=== PATIENT | male | born 1940 | race Caucasian/White ===

== ENCOUNTER 2023-03-02 17:49 | Outpatient (REF) | payer MEDICARE, OTHER, SELFPAY ==
[2023-03-03 00:09] LABS: Bilirubin Urine NEGATIVE (NEGATIVE); Blood Urine NEGATIVE (NEGATIVE); Clarity Urine CLEAR (CLEAR); Color Urine YELLOW (YELLOW); Glucose Urine UA NEGATIVE (NEGATIVE); Ketones Urine TRACE mg/dL (NEGATIVE); Leukocyte Esterase Urine NEGATIVE (NEGATIVE); Nitrite Urine NEGATIVE (NEGATIVE); Protein Urine NEGATIVE (NEG/TRACE); Specific Gravity Urine 1.025 (1.005-1.025); pH Urine 5.5 (5.0-9.0)
== END 2023-03-02 17:50 | disposition home or self-care (01) ==
LOC: LAB 17:49
PROVIDERS: Visit Provider Internal Medicine
DX: N39.0 Urinary tract infection, site not specified (principal)
CPT/HCPCS: 81003; 87086

== ENCOUNTER 2023-11-10 13:18 | Emergency (ER) | payer MEDICARE, OTHER, SELFPAY ==
[2023-11-10] VITALS (16 sets, daily range): BP systolic 133–151; BP diastolic 74–83; PULSE 65–89; TEMP 36.7; O2SAT 94–97; BMI 32.3
--- NOTE | 2023-11-10 13:28 | CT_ITS ---
[address] [address] Patient Name: GLENNA BHANDARI MRN: [id number] date: 1940 Sex: M Assigned Patient Location: ER Current Patient Location: Accession/Order Number: [id number] Exam Date: 11/10/2023 14:20 Report Date: 11/10/2023 15:06 At the request of: WALE WALDROP Procedure: CT abdomen pelvis w con EXAMINATION: CT abdomen pelvis w con HISTORY: pain ; upper abdominal pain when standing COMPARISON: No relevant comparison available. TECHNIQUE: Axial, Coronal, and Sagittal images were obtained without and/or with IV contrast as indicated by examination type. Dose reduction techniques were achieved by using automated exposure control and/or adjustment of mA and/or kV according to patient size and/or use of iterative reconstruction technique. FINDINGS: LUNG BASES: Calcified granulomas within left lung base. No acute infiltrates. LIVER: No enlargement, atrophy, suspicious density, or significant focal lesion. BILIARY: Numerous small stones partially filling the noninflamed gallbladder. PANCREAS: No lesion, fluid collection, or abnormal duct dilatation. SPLEEN: No enlargement or focal lesion. ADRENALS: No mass or enlargement. KIDNEYS: 6 cm benign-appearing right renal cyst. A few tiny hypodensities within left kidney, suspected represent cysts. Moderate cortical thinning bilaterally. No appreciable mass, stones, or obstruction. BOWEL/MESENTERY: No visible mass, obstruction, or bowel wall thickening. AORTA/VASCULAR: No aneurysm or dissection. RETROPERITONEUM: Moderate atherosclerotic disease. No mass or adenopathy. LYMPH NODES: No adenopathy. URINARY BLADDER: No visible focal wall thickening, lesion, or calculus. PELVIC ORGANS: No visible mass. Pelvic organs appropriate for patient age. ABDOMINAL WALL: Small fat filled umbilical hernia without strangulation. BONES: Multilevel moderate degenerative disc disease and facet arthropathy resulting in moderate central canal and areas of marked foramen narrowing. Old, healed lower right rib fractures. OTHER: Negative. CT/CT abdomen pelvis w con IMPRESSION: 1. Cholelithiasis. 2. Small fat filled umbilical hernia without strangulation. 3. Degenerative changes of lumbar spine resulting in moderate-marked foramen and moderate central canal narrowing. Electronically authenticated by: RG MCCULLOUGH Date: 11/10/2023 15:06
--- NOTE | 2023-11-10 13:28 | XR_ITS ---
The [address] [address] Patient Name: GLENNA BHANDARI MRN: [id number] date: 1940 Sex: M Assigned Patient Location: ED.MAIN Current Patient Location: ER Accession/Order Number: [id number] Exam Date: 11/10/2023 14:20 Report Date: 11/10/2023 14:40 At the request of: WALE WALDROP Procedure: XR chest 1V EXAMINATION: XR chest 1V HISTORY: upper abd pain COMPARISON: No relevant comparison available. FINDINGS: LUNGS: Underexpanded lungs with mild haziness and trace amount stranding within left lung base. Obscuration of left lateral costophrenic angle. VASCULATURE: No increased pulmonary vasculature. PLEURA: No pneumothorax, effusion, or pleural thickening. CARDIAC: No cardiomegaly or cardiac silhouette abnormality. MEDIASTINUM: No visible mass or adenopathy. BONES: No fracture or visible bone lesion. OTHER: Negative. XR/XR chest 1V IMPRESSION: 1. Mild lingular infiltrates versus atelectasis. A small left pleural effusion cannot be excluded. Electronically authenticated by: RG MCCULLOUGH Date: 11/10/2023 14:40
--- NOTE | 2023-11-10 13:28 | ECG_ITS ---
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
[2023-11-10] MEDS: 0.9 % SODIUM CHLORIDE 500 ML IV (13:37)
[2023-11-10 13:43] LABS: Basophils Percent Auto 0.4 % (0.2-2.0); Eosinophils Absolute Auto 0.2 10^3/uL (0.0-0.7); Eosinophils Percent Auto 3.2 % (0.9-7.0); Hematocrit 44.9 % (42.0-54.0); Hemoglobin 14.8 g/dL (14.0-18.0); Immature Granulocytes Abs Auto 0.03 10^3/uL (0.00-0.03); Immature Granulocytes Pct Auto 0.4 % (0.0-0.5); Lymphocytes Absolute Auto 1.7 10^3/uL (1.2-3.8); Lymphocytes Percent Auto 22.9 % (20.5-60.0); Mean Corpuscular Hemoglobin 32.5 pg (25.9-34.0); Mean Corpuscular Volume 98.7 fL (80.0-94.0); Mean Platelet Volume 10.5 fL (9.5-13.5); Monocytes Absolute Auto 0.8 10^3/uL (0.3-0.8); Monocytes Percent Auto 10.1 % (1.7-12.0); Neutrophils Absolute Auto 4.7 10^3/uL (1.4-6.5); Platelet Count 196 10^3/uL (150-450); Red Blood Count 4.55 10^6/uL (4.70-6.10); Red Cell Distribution Width 13.2 % (11.0-15.0); White Blood Count 7.4 10^3/uL (4.0-11.0)
[2023-11-10 14:03] LABS: Lactate/Lactic Acid 1.5 mmol/L (0.4-2.0)
[2023-11-10 14:04] LABS: Alanine Aminotransferase 33 U/L (16-63); Albumin Level 3.8 g/dL (3.4-5.0); Alkaline Phosphatase 91 U/L (46-116); Anion Gap 10.2; Aspartate Amino Transferase 16 U/L (15-37); BUN Creatinine Ratio 29.2; Bilirubin Total 0.4 mg/dL (0.2-1.0); Calcium 8.9 mg/dL (8.5-10.1); Chloride 107 mmol/L (98-107); Estimated GFR (African America >60 (>=60); Estimated GFR (Non-African Ame >60 (>=60); Globulin 3.9 g/dL; Glucose 74 mg/dL (74-106); Potassium 4.2 mmol/L (3.5-5.1); Sodium 143 mmol/L (136-145); Total Protein 7.7 g/dL (6.4-8.2); Troponin I High Sensitivity 7.2 pg/mL (4.0-76.1)
--- NOTE | 2023-11-10 14:32 | ED.ABDPAIN1 ---
HPI - Abdominal Pain General Chief Complaint: Abdominal Pain Stated Complaint: ABDOMINAL PAIN/ALTERED MENTAL STATUS Time Seen by Provider: 11/10/23 13:21 Source: patient and family Mode of arrival: ambulance Limitations: altered mental status History of Present Illness HPI narrative: Patient presents to ED complaining of abdominal pain. He is from a facility and he is in the memory care unit with a diagnosis of dementia. POTeri wanted him evaluated for abdominal pain. Apparently when somebody pressed on his abdomen he yelled out in pain. He said it is not hurting unless you push on it or if he is walking it was hurting. No nausea vomiting no fevers. He has chronic lower extremity edema. He denies any abdominal surgeries in the past. Vital signs stable resting comfortably in the bed Related Data Home Medications ?Medication ?Instructions ?Recorded ?Confirmed clopidogrel 75 mg tablet 75 mg PO DAILY 11/10/23 11/10/23 psyllium husk 0.52 gram capsule 0.52 g PO TID 11/10/23 11/10/23 (Fiber (psyllium husk)) rosuvastatin 5 mg tablet 5 mg PO BEDTIME 11/10/23 11/10/23 spironolactone 25 mg tablet 25 mg PO DAILY 11/10/23 11/10/23 terbinafine HCl 250 mg tablet 250 mg PO DAILY 11/10/23 11/10/23 valsartan 80 mg tablet 80 mg PO DAILY 11/10/23 11/10/23 Allergies Allergy/AdvReac Type Severity Reaction Status Date / Time No Known Drug Allergies Allergy Verified 11/10/23 13:20 Review of Systems ROS Status of ROS 10 or more systems reviewed and unremarkable except as noted in history and below Exam Narrative Exam Narrative: Time Seen: [] Vital Signs: [Per nurse's notes.] General: [Alert] Skin: [Warm, dry, no rash.] Head: [Normocephalic, atraumatic.] Neck: [Supple, trachea midline.] Eye: [Pupils are equal, round and reactive to light, extraocular movements are intact, normal conjunctiva.] Ears, nose, mouth and throat: oral mucosa moist. Cardiovascular: [Regular rate and rhythm, no murmur.] Respiratory: [Lungs are clear to auscultation, respirations are non-labored, breath sounds are equal.] Chest wall: [No tenderness, no deformity.] Gastrointestinal: [Soft, Mild epigastric tenderness, non distended, normal bowel sounds.] MSK: 5 out of 5 muscle strength x 4 extremities Chronic edema Bilateral lower extremities Lymphatics: [No lymphadenopathy.] Psychiatric: [Cooperative, appropriate mood & affect.] Neurological: [Alert and oriented to person, Confused but at baseline no focal neurological deficit observed.] Constitutional Vital Signs, click to edit/add: Last Vital Signs Temp 98.1 F 11/10/23 13:25 Pulse 67 11/10/23 13:20 Resp 18 11/10/23 13:20 BP 151/74 H 11/10/23 13:20 Pulse Ox 97 11/10/23 13:20 O2 Del Method Room Air 11/10/23 13:20 Course Vital Signs Vital signs: Vital Signs Pulse Rate 67 11/10/23 13:20 Respiratory Rate 18 11/10/23 13:20 Blood Pressure 151/74 H 11/10/23 13:20 Pulse Oximetry 97 11/10/23 13:20 Oxygen Delivery Method Room Air 11/10/23 13:20 Temperature 98.1 F 11/10/23 13:25 Pulse Rate 67 11/10/23 13:20 Respiratory Rate 18 11/10/23 13:20 Blood Pressure 151/74 H 11/10/23 13:20 Pulse Oximetry 97 11/10/23 13:20 Oxygen Delivery Method Room Air 11/10/23 13:20 MDM - Abdominal Pain MDM Narrative Medical decision making narrative: Labs and imaging are nonacute. He does have some gallstones on the CAT scan but LFTs and lipase are normal. No fever no vomiting. Patient states he feels comfortable here. Vital signs stable. Comfortable with care plan for discharge back to facility Differential Diagnosis Differential diagnosis: Likely abdominal pain, constipation, diverticulitis, gastroenteritis and small bowel obstruction Medical Records Attestation: I reviewed the patient's medical records. Lab Data Attestation: I reviewed the patient's lab results. Labs: Lab Results 11/10/23 Range/Units 13:35 WBC 7.4 (4.0-11.0) 10^3/uL RBC 4.55 L (4.70-6.10) 10^6/uL Hgb 14.8 (14.0-18.0) g/dL Hct 44.9 (42.0-54.0) % MCV 98.7 H (80.0-94.0) fL MCH 32.5 (25.9-34.0) pg MCHC 33.0 (29.9-35.2) g/dL RDW 13.2 (11.0-15.0) % Plt Count 196 (150-450) 10^3/uL MPV 10.5 (9.5-13.5) fL Neut % (Auto) 63.0 (43.0-75.0) % Lymph % (Auto) 22.9 (20.5-60.0) % [place] % (Auto) 10.1 (1.7-12.0) % Eos % (Auto) 3.2 (0.9-7.0) % Baso % (Auto) 0.4 (0.2-2.0) % Neut # (Auto) 4.7 (1.4-6.5) 10^3/uL Lymph # (Auto) 1.7 (1.2-3.8) 10^3/uL [place] # (Auto) 0.8 (0.3-0.8) 10^3/uL Eos # (Auto) 0.2 (0.0-0.7) 10^3/uL Baso # (Auto) 0.0 (0.0-0.1) 10^3/uL Abs Immat Gran (auto) 0.03 (0.00-0.03) 10^3/uL Imm/Tot Granulo (auto) 0.4 (0.0-0.5) % Sodium 143 (136-145) mmol/L Potassium 4.2 (3.5-5.1) mmol/L Chloride 107 (98-107) mmol/L Carbon Dioxide 30.0 (21.0-32.0) mmol/L Anion Gap 10.2 BUN 33.0 H (7.0-18.0) mg/dL Creatinine 1.13 (0.70-1.30) mg/dL Est GFR ( Amer) >60 (>=60) Est GFR (Non-Af Amer) >60 (>=60) BUN/Creatinine Ratio 29.2 Glucose 74 (74-106) mg/dL Lactate 1.5 (0.4-2.0) mmol/L Calcium 8.9 (8.5-10.1) mg/dL Total Bilirubin 0.4 (0.2-1.0) mg/dL AST 16 (15-37) U/L ALT 33 (16-63) U/L Alkaline Phosphatase 91 (46-116) U/L Troponin I High Sens 7.2 (4.0-76.1) pg/mL Total Protein 7.7 (6.4-8.2) g/dL Albumin 3.8 (3.4-5.0) g/dL Globulin 3.9 g/dL Albumin/Globulin Ratio 1.0 Lipase 21.0 (16.0-77.0) U/L Imaging Data CT scan - abdomen: Radiologist's impression: ITS Impressions Abdomen/Pelvis CT 11/10/23 13:28 IMPRESSION: 1. Cholelithiasis. 2. Small fat filled umbilical hernia without strangulation. 3. Degenerative changes of lumbar spine resulting in moderate-marked foramen and moderate central canal narrowing. Electronically authenticated by: RG MCCULLOUGH Date: 11/10/2023 15:06 Chest X-Ray 11/10/23 13:28 IMPRESSION: 1. Mild lingular infiltrates versus atelectasis. A small left pleural effusion cannot be excluded. Electronically authenticated by: RG MCCULLOUGH Date: 11/10/2023 14:40 ECG Data Attestation: I personally reviewed and interpreted this ECG as follows: Interpretation: EKG INTERPRETATION Time: []1327 Rate: []67 Rhythm: _ []Normal sinus rhythm first-degree AV block, right bundle branch block ST segments: _ []No acute ST elevation or depression T waves: _ [] Ectopy: _ [] P wave/GA interval: _ [] QRS interval: _ [] QT interval: _ [] Comparison: _ [] Comparison EKG date: [] Performed by: [self] Discharge Plan Discharge Stand Alone Forms: Portal Instructions Chief Complaint: Abdominal Pain Clinical Impression: Abdominal pain Patient Disposition: Home, Self-Care Time of Disposition Decision: 15:33 Mode of Transportation: Private Vehicle Prescriptions / Home Meds: No Action rosuvastatin 5 mg tablet 5 mg PO BEDTIME spironolactone 25 mg tablet 25 mg PO DAILY terbinafine HCl 250 mg tablet 250 mg PO DAILY valsartan 80 mg tablet 80 mg PO DAILY clopidogrel 75 mg tablet 75 mg PO DAILY psyllium husk [Fiber (psyllium husk)] 0.52 gram capsule 0.52 g PO TID Print Language: Uzbek Instructions: Abdominal Pain (ED) Referrals: Physician,Non-Staff, MD [Primary Care Provider] - 1 week
--- NOTE | 2023-11-10 17:00 | PC.NURSE ---
PT GETTING AGITATED AT THIS TIME AND WANTS TO LEAVE. SECURITY AT BEDSIDE.
--- NOTE | 2023-11-10 17:21 | PC.NURSE ---
Spoke with sister, Whit, on the phone and informed her that pt will be d/c's soon back to [facility]. She denies any questions or concerns at this time.
== END 2023-11-10 20:34 | disposition home or self-care (01) ==
PROVIDERS: Emergency Provider Emergency Medicine
DX: R10.9 Unspecified abdominal pain (principal); F03.90 Unspecified dementia, unspecified severity, without behavioral disturbance, psychotic disturbance, mood disturbance, and anxiety
CPT/HCPCS: 36415; 71045; 74177; 80053; 83605; 83690; 84484; 85025; 93005; 99285; Q9967

== ENCOUNTER 2024-04-02 21:16 | Emergency (ER) | payer MEDICARE, OTHER, SELFPAY ==
[2024-04-02 21:19] VITALS: BP 106/61; PULSE 78; TEMP 36.6; O2SAT 93; BMI 40.4
--- NOTE | 2024-04-02 21:33 | ED_ITS ---
HPI HPI - General Adult General Chief complaint: Back Pain/Injury Stated complaint: pain Time Seen by Provider: 04/02/24 21:20 Source: patient Mode of arrival: ambulance History of Present Illness HPI narrative: This 83-year-old male with a history of dementia who [facility] is brought to the emergency department by EMS after he complained of pain in his inguinal region/groin. The patient denies any complaint of pain upon arrival. He does not recall complaining of pain. He is alert, oriented to person, knows he is somewhere other than his senior care but does not recognize the hospital. He denies any chest pain or shortness of breath. He is wearing a brief and has extreme excoriation in the inguinal area bilaterally with foul-smelling drainage that extends mildly onto his scrotum bilaterally. He is not circumcised, his foreskin is easy to retract but reveals white patches on the glans of his penis consistent with a fungal infection. Related Data Home Medications ?Medication ?Instructions ?Recorded ?Confirmed clopidogrel 75 mg tablet 75 mg PO DAILY 11/10/23 04/02/24 psyllium husk 0.52 gram capsule 0.52 g PO TID 11/10/23 04/02/24 (Fiber (psyllium husk)) rosuvastatin 5 mg tablet 5 mg PO BEDTIME 11/10/23 04/02/24 spironolactone 25 mg tablet 25 mg PO DAILY 11/10/23 04/02/24 terbinafine HCl 250 mg tablet 250 mg PO DAILY 11/10/23 04/02/24 valsartan 80 mg tablet 80 mg PO DAILY 11/10/23 04/02/24 aspirin 81 mg chewable tablet 81 mg PO DAILY 04/02/24 04/02/24 cholecalciferol (vitamin D3) 50 50 mcg PO DAILY 04/02/24 04/02/24 mcg (2,000 unit) capsule (D3-2000) diclofenac sodium 1 % topical gel topical 04/02/24 Allergies Allergy/AdvReac Type Severity Reaction Status Date / Time No Known Drug Allergies Allergy Verified 11/10/23 13:20 Opioid HPI Opioid Management Most Recent Opioid Data: No Data to Display Review of Systems ROS Status of ROS 10 or more systems reviewed and unremark able except as noted in history and below Exam Narrative Exam Narrative: Vital signs and Nursing Notes reviewed: Patient is afebrile with a normal pulse, normal blood pressure, he is mildly hypoxic with pulse ox of 93% on room air General: Awake, alert, pleasantly confused, no acute distress, lying comfortably on the stretcher HEENT: Normocephalic atraumatic, mucous membranes are moist and pink, eyes are clear, normal conjunctiva, vision is grossly intact, posterior pharynx is normal in appearance. Chest: Lungs are clear to auscultation with good air entry, there is no wheezing rhonchi or rales appreciated no accessory muscle use, patient is speaking in complete sentences-no chest wall tenderness to palpation CVS: Regular rate and rhythm S1-S2, no murmurs rubs or gallops, pulses are brisk and equal bilaterally ABD: Soft, nondistended, nontender, no rebound guarding or rigidity, bowel sounds are normal, no pulsatile masses appreciated : Uncircumcised, foreskin easy to retract revealing erythematous glans penis with white patches on the glans, there is a large amount of skin excoriation with fall smelling thick drainage in both inguinal folds, this extends mildly onto the scrotum. The scrotum are both descended and normal in appearance and nontender to palpation Extremities: Moving all extremities, no lower extremity tenderness or swelling noted, negative Homans' sign, pulses are brisk and equal bilaterally Skin: Skin fold infection in the inguinal area bilaterally extending onto the thighs and scrotum-this was cultured Neuro: Pleasantly confused with a history of dementia, otherwise neuroexam is normal Constitutional Vital Signs, click to edit/add: Last Vital Signs Temp 97.9 F 04/02/24 21:19 Pulse 78 04/02/24 21:19 Resp 18 04/02/24 21:19 BP 106/61 04/02/24 21:19 Pulse Ox 93 L 04/02/24 21:19 O2 Del Method Room Air 04/02/24 21:19 Course Vital Signs Vital signs: Vital Signs Temperature 97.9 F 04/02/24 21:19 Pulse Rate 78 04/02/24 21:19 Respiratory Rate 18 04/02/24 21:19 Blood Pressure 106/61 04/02/24 21:19 Pulse Oximetry 93 L 04/02/24 21:19 Oxygen Delivery Method Room Air 04/02/24 21:19 Temperature 97.9 F 04/02/24 21:19 Pulse Rate 78 04/02/24 21:19 Respiratory Rate 18 04/02/24 21:19 Blood Pressure 106/61 04/02/24 21:19 Pulse Oximetry 93 L 04/02/24 21:19 Oxygen Delivery Method Room Air 04/02/24 21:19 Medical Decision Making MDM Narrative Medical decision making narrative: This 83-year-old male with a history of dementia is transferred [facility] the emergency department [facility] after he complained of pain in his groin after sitting down in his chair. The patient does not remember this and upon arrival has no complaints of pain. He has an extremely excoriated superficial skin infection in his inguinal area that extends onto his inner thighs and externally onto his scrotum. He also has balanitis on his glans penis. Routine labs are reviewed. He has a normal white count and hemoglobin. Electrolytes are normal. He is not diabetic. The area was cultured. It appears to be a fungal infection possibly with local skin infection in addition to the fungal infection. He was given an IV dose of clindamycin and nystatin powder was placed onto the inner thighs and inguinal area after it was cleaned with soap and water and nystatin cream was placed over the glans of his penis. IV Diflucan was not available and he was given oral Diflucan in addition to the clindamycin. He will be discharged home with prescription for the nystatin cream, nystatin powder, clindamycin and oral Diflucan. A discussion will be had with the nurse at the facility regarding this patient's hygiene. He obviously does not change his own depends and is not getting the hygiene he requires to maintain a reasonable degree of cleanliness. Medical Records Medical records reviewed: Yes I reviewed the patient's medical records Lab Data Lab results reviewed: Yes I reviewed the patient's lab results Labs: Lab Results 04/02/24 Range/Units 21:40 WBC 8.2 (4.0-11.0) 10^3/uL RBC 4.24 L (4.70-6.10) 10^6/uL Hgb 13.6 L (14.0-18.0) g/dL Hct 42.1 (42.0-54.0) % MCV 99.3 H (80.0-94.0) fL MCH 32.1 (25.9-34.0) pg MCHC 32.3 (29.9-35.2) g/dL RDW 12.8 (11.0-15.0) % Plt Count 196 (150-450) 10^3/uL MPV 10.9 (9.5-13.5) fL Neut % (Auto) 66.1 (43.0-75.0) % Lymph % (Auto) 20.7 (20.5-60.0) % [place] % (Auto) 7.2 (1.7-12.0) % Eos % (Auto) 5.4 (0.9-7.0) % Baso % (Auto) 0.2 (0.2-2.0) % Neut # (Auto) 5.4 (1.4-6.5) 10^3/uL Lymph # (Auto) 1.7 (1.2-3.8) 10^3/uL [place] # (Auto) 0.6 (0.3-0.8) 10^3/uL Eos # (Auto) 0.4 (0.0-0.7) 10^3/uL Baso # (Auto) 0.0 (0.0-0.1) 10^3/uL Abs Immat Gran (auto) 0.03 (0.00-0.03) 10^3/uL Imm/Tot Granulo (auto) 0.4 (0.0-0.5) % Sodium 143 (136-145) mmol/L Potassium 4.8 (3.5-5.1) mmol/L Chloride 108 H (98-107) mmol/L Carbon Dioxide 30.0 (21.0-32.0) mmol/L Anion Gap 9.8 BUN 36.0 H (7.0-18.0) mg/dL Creatinine 1.23 (0.70-1.30) mg/dL Est GFR ( Amer) >60 (>=60 mL/min/1.73m^2) Est GFR (Non-Af Amer) 56 L (>=60 mL/min/1.73m^2) BUN/Creatinine Ratio 29.3 Glucose 126 H (74-106) mg/dL Lactate 1.5 (0.4-2.0) mmol/L Calcium 9.1 (8.5-10.1) mg/dL Total Bilirubin 0.4 (0.2-1.0) mg/dL AST 13 L (15-37) U/L ALT 21 (16-63) U/L Alkaline Phosphatase 88 (46-116) U/L Total Protein 7.1 (6.4-8.2) g/dL Albumin 3.6 (3.4-5.0) g/dL Globulin 3.5 g/dL Albumin/Globulin Ratio 1.0 ECG Data Attestation: I personally reviewed and interpreted this ECG as follows: (Rapid atrial rhythm at 76 bpm, left axis deviation, nonspecific ST changes, no acute ST segment elevation or T wave inversion) Discharge Plan Discharge Chief Complaint: Back Pain/Injury Clinical Impression: Cutaneous fungal infection Patient Disposition: Home, Self-Care Time of Disposition Decision: 23:32 Condition: Good Prescriptions / Home Meds: No Action rosuvastatin 5 mg tablet 5 mg PO BEDTIME spironolactone 25 mg tablet 25 mg PO DAILY terbinafine HCl 250 mg tablet 250 mg PO DAILY valsartan 80 mg tablet 80 mg PO DAILY clopidogrel 75 mg tablet 75 mg PO DAILY psyllium husk [Fiber (psyllium husk)] 0.52 gram capsule 0.52 g PO TID diclofenac sodium 1 % gel TOPICAL aspirin 81 mg tablet,chewable 81 mg PO DAILY cholecalciferol (vitamin D3) [D3-2000] 50 mcg (2,000 unit) capsule 50 mcg PO DAILY Print Language: German Instructions: Skin Yeast Infection (ED) Referrals: SANDEEP SOLIS DO [Primary Care Provider] - 1 week
--- NOTE | 2024-04-02 21:33 | ECG_ITS ---
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
[2024-04-02 21:53] LABS: Basophils Percent Auto 0.2 % (0.2-2.0); Eosinophils Absolute Auto 0.4 10^3/uL (0.0-0.7); Eosinophils Percent Auto 5.4 % (0.9-7.0); Hematocrit 42.1 % (42.0-54.0); Hemoglobin 13.6 g/dL (14.0-18.0); Immature Granulocytes Abs Auto 0.03 10^3/uL (0.00-0.03); Immature Granulocytes Pct Auto 0.4 % (0.0-0.5); Lymphocytes Absolute Auto 1.7 10^3/uL (1.2-3.8); Lymphocytes Percent Auto 20.7 % (20.5-60.0); Mean Corpuscular HGB Conc 32.3 g/dL (29.9-35.2); Mean Corpuscular Hemoglobin 32.1 pg (25.9-34.0); Mean Corpuscular Volume 99.3 fL (80.0-94.0); Mean Platelet Volume 10.9 fL (9.5-13.5); Monocytes Absolute Auto 0.6 10^3/uL (0.3-0.8); Monocytes Percent Auto 7.2 % (1.7-12.0); Neutrophils Absolute Auto 5.4 10^3/uL (1.4-6.5); Neutrophils Percent Auto 66.1 % (43.0-75.0); Platelet Count 196 10^3/uL (150-450); Red Blood Count 4.24 10^6/uL (4.70-6.10); Red Cell Distribution Width 12.8 % (11.0-15.0); White Blood Count 8.2 10^3/uL (4.0-11.0)
--- NOTE | 2024-04-02 21:56 | PC.NURSE ---
Pt presents to ER from [facility] for groin pain Pt has a hx of dementia Per nurse report pt was outside smoking and then came in complaining of groin pain On arrival pt states he has no pain and does not remember having groin pain Pt assessment performed by Dr. Root and this nurse Pt's groin area in entirety is excoriated, red, seeping with a strong foul odor Pt is incontinnent and wears a brief, the areas where it touches his legs and stomach are the worst but the scrotom and penis are also red, with curd like discharge Pt very tender to the touch IV initiated, EKG done, labs and cultures obtained as well as a wound culture from the groin area Pt left with call light and directed not to get up on his own
[2024-04-02 22:07] LABS: Alanine Aminotransferase 21 U/L (16-63); Albumin Level 3.6 g/dL (3.4-5.0); Alkaline Phosphatase 88 U/L (46-116); Anion Gap 9.8; Aspartate Amino Transferase 13 U/L (15-37); BUN Creatinine Ratio 29.3; Bilirubin Total 0.4 mg/dL (0.2-1.0); Calcium 9.1 mg/dL (8.5-10.1); Chloride 108 mmol/L (98-107); Estimated GFR (African America >60 (>=60 mL/min/1.73m^2); Estimated GFR (Non-African Ame 56 (>=60 mL/min/1.73m^2); Globulin 3.5 g/dL; Glucose 126 mg/dL (74-106); Potassium 4.8 mmol/L (3.5-5.1); Sodium 143 mmol/L (136-145); Total Protein 7.1 g/dL (6.4-8.2)
[2024-04-02 22:10] LABS: Lactate/Lactic Acid 1.5 mmol/L (0.4-2.0)
[2024-04-02] MEDS: CLINDAMYCIN PHOSPHATE/D5W 900 MG/50 ML PREMIX 100 MG IV (22:39)
[2024-04-02] MEDS: NYSTATIN 100,000 UNITS/GRAM CREAM 15 GM TUBE 1 APPLIC TOPICAL (22:39)
[2024-04-02] MEDS: NYSTATIN 15 GM POWDER 1 APPLIC TOPICAL (22:40)
[2024-04-03 00:30] VITALS: BP 122/80; PULSE 68; O2SAT 97
[2024-04-03] MEDS: FLUCONAZOLE 150 MG TABLET PO (00:40)
== END 2024-04-03 00:45 | disposition home or self-care (01) ==
PROVIDERS: Emergency Provider Emergency Medicine; PCP Internal Medicine
DX: B36.8 Other specified superficial mycoses (principal); N48.1 Balanitis; F03.90 Unspecified dementia, unspecified severity, without behavioral disturbance, psychotic disturbance, mood disturbance, and anxiety
CPT/HCPCS: 36415; 80053; 83605; 85025; 87040; 87070; 87075; 93005; 96365; 99285; J0736

== ENCOUNTER 2024-04-08 07:29 | Emergency (ER) | payer OTHER, SELFPAY ==
[2024-04-08] VITALS (24 sets, daily range): BP systolic 116–179; BP diastolic 71–95; PULSE 60–75; TEMP 37.1; O2SAT 92–99; BMI 35.5
--- NOTE | 2024-04-08 07:46 | ED_ITS ---
HPI HPI - General Adult General Chief complaint: Fall Stated complaint: CHEST PAIN Time Seen by Provider: 04/08/24 07:46 Source: patient and medical record Mode of arrival: ambulance Limitations: physical limitation History of Present Illness HPI narrative: Patient here by EMS from local half-way. Patient apparently was complaining of chest discomfort. He does have some dementia and is extremely limited in describing his symptoms prior to the paramedics and to our nursing staff as well as myself. He did fall several days ago. He denies any headache neck pain or discomfort in this area most of it is in the abdominal area right and left lateral chest wall. He is known to have coronary artery disease according to his old medical records but has not had bypass surgery. He cannot tell us if he has had stents. He also has COPD. He is DNR [facility]. There is no family members here with him at this time. He does not appear to be uncomfortable at this time. Vital signs are noted his transport EKG and arrival EKG do not show any ST segment elevation or arrhythmia. He is very nonspecific his symptoms and when we ask him where his discomfort is at he reports a different location each time we asked him. Related Data Home Medications ?Medication ?Instructions ?Recorded ?Confirmed clopidogrel 75 mg tablet 75 mg PO DAILY 11/10/23 04/08/24 psyllium husk 0.52 gram capsule 0.52 g PO TID 11/10/23 04/02/24 (Fiber (psyllium husk)) rosuvastatin 5 mg tablet 5 mg PO BEDTIME 11/10/23 04/08/24 spironolactone 25 mg tablet 25 mg PO DAILY 11/10/23 04/08/24 terbinafine HCl 250 mg tablet 250 mg PO DAILY 11/10/23 04/08/24 valsartan 80 mg tablet 80 mg PO DAILY 11/10/23 04/08/24 aspirin 81 mg chewable tablet 81 mg PO DAILY 04/02/24 04/08/24 cholecalciferol (vitamin D3) 50 50 mcg PO DAILY 04/02/24 04/08/24 mcg (2,000 unit) capsule (D3-2000) diclofenac sodium 1 % topical gel topical 04/02/24 clindamycin HCl 300 mg capsule mg 04/08/24 fluconazole 100 mg tablet mg 04/08/24 nystatin 100,000 unit/gram topical topical 04/08/24 cream Allergies Allergy/AdvReac Type Severity Reaction Status Date / Time No Known Drug Allergies Allergy Verified 04/08/24 07:37 Opioid HPI Opioid Management Most Recent Opioid Data: No Data to Display PFSH PFSH Social History Little interest or pleasure in doing things: not at all Feeling down, depressed, or hopeless: not at all Exam Narrative Exam Narrative: Awake alert follows all simple commands. As noted above has nonspecific pain syndrome throughout the body. However he does deny headache or neck pain at this time. On HEENT there is no evidence of craniofacial trauma bruising injury. There is no CSF otorrhea or rhinorrhea. He has no tenderness palpation of the cervical spine. He has unlimited range of motion of the neck. Passive palpation of the shoulders and range of motion testing reproduces no evidence of bony discomfort. Sternum is nontender there is no sternotomy. Heart sounds are normal with no S3-S4 or murmur. Chest wall shows no bruising contusions or subcutaneous emphysema or evidence of rib injury. Abdominal examination equally benign with no distention no guarding rebound rigidity or peritoneal findings. Extremities show 1+ lower leg edema with no evidence of erythema cellulitis or DVT. Constitutional Vital Signs, click to edit/add: Last Vital Signs Temp 98.7 F 04/08/24 07:33 Pulse 69 04/08/24 07:33 Resp 18 04/08/24 07:33 BP 155/74 H 04/08/24 07:33 Pulse Ox 98 04/08/24 07:33 O2 Del Method Room Air 04/08/24 07:33 Course Vital Signs Vital signs: Vital Signs Temperature 98.7 F 04/08/24 07:33 Pulse Rate 69 04/08/24 07:33 Respiratory Rate 18 04/08/24 07:33 Blood Pressure 155/74 H 04/08/24 07:33 Pulse Oximetry 98 04/08/24 07:33 Oxygen Delivery Method Room Air 04/08/24 07:33 Temperature 98.7 F 04/08/24 07:33 Pulse Rate 69 04/08/24 07:33 Respiratory Rate 18 04/08/24 07:33 Blood Pressure 155/74 H 04/08/24 07:33 Pulse Oximetry 98 04/08/24 07:33 Oxygen Delivery Method Room Air 04/08/24 07:33 Medical Decision Making [facility] Narrative Medical decision making narrative: This patient presents with nonspecific symptoms and a normal clinical exam. His D-dimer was elevated so we did pursue a CTA of the chest which showed coronary calcifications but no pulmonary embolism. Chest x-ray did not suggest any acute infectious/pneumonia process. Cardiac enzymes negative, EKG unremarkable as well. 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 Previous CT abdomen here showed cholelithiasis but his liver function tests and white blood cell count are normal and he had no tenderness in the right upper quadrant today. We will let him go back to his facility Discharge Plan Discharge Chief Complaint: Fall Clinical Impression: Cholelithiasis Patient Disposition: Home, Self-Care Time of Disposition Decision: 09:59 Condition: Fair Prescriptions / Home Meds: No Action rosuvastatin 5 mg tablet 5 mg PO BEDTIME spironolactone 25 mg tablet 25 mg PO DAILY terbinafine HCl 250 mg tablet 250 mg PO DAILY valsartan 80 mg tablet 80 mg PO DAILY clopidogrel 75 mg tablet 75 mg PO DAILY psyllium husk [Fiber (psyllium husk)] 0.52 gram capsule 0.52 g PO TID diclofenac sodium 1 % gel TOPICAL aspirin 81 mg tablet,chewable 81 mg PO DAILY cholecalciferol (vitamin D3) [D3-2000] 50 mcg (2,000 unit) capsule 50 mcg PO DAILY fluconazole 100 mg tablet clindamycin HCl 300 mg capsule nystatin 100,000 unit/gram cream TOPICAL Print Language: Haitian Referrals: SANDEEP SOLIS DO [Primary Care Provider] - 1 week
--- NOTE | 2024-04-08 07:52 | ECG_ITS ---
[facility] Test Date: 2024-04-08 Pat Name: GLENNA BHANDARI Department: Room: - Gender: Male Watch Commander: : 1940 Requested By: Order Number: [id number] Reading MD: BENNETT SHERIDAN Measurements Intervals [place] Rate: 68 P: -[id number] [place]: 240 QRS: 5 QRSD: 120 T: 36 QT: 406 QTc: 422 Interpretive Statements Sinus tachycardia with first degree AV block RIGHT BUNDLE BRANCH BLOCK with secondary ST/T wave changes 8102 Low QRS voltage in chest leads 9150 abnormal ECG Electronically Signed On 04-09-2024 7:49:10 EST by BENNETT SHERIDAN
--- NOTE | 2024-04-08 07:52 | XR_ITS ---
[address] [address] Patient Name: GLENNA BHANDARI MRN: [id number] date: 1940 Sex: M Assigned Patient Location: ER Current Patient Location: ED.MAIN Accession/Order Number: [id number] Exam Date: 04/08/2024 07:58 Report Date: 04/08/2024 08:29 At the request of: IVORY COYLE Procedure: XR chest 1V EXAM: XR chest 1V HISTORY: Chest pain. COMPARISON: Portable chest radiograph dated 11/10/2023. TECHNIQUE: AP erect portable chest radiograph performed. FINDINGS: The trachea is midline. Stable mild prominence of the cardiac silhouette. Stable ectasia of the aortic arch. Hilar shadows are stable and unremarkable. There are mild atelectatic densities at the lung bases. There is no consolidation, pleural effusion or pulmonary vascular congestion. There is a calcified granuloma at the left lung base. There is no pneumothorax or acute osseous abnormality. The bony structures are osteopenic. XR/XR chest 1V IMPRESSION: There are mild atelectatic densities at the lung bases. There is no consolidation, pleural effusion or pulmonary vascular congestion. Electronically authenticated by: PERCY PERRY Date: 04/08/2024 08:29
[2024-04-08 07:57] LABS: Basophils Percent Auto 0.3 % (0.2-2.0); Eosinophils Absolute Auto 0.5 10^3/uL (0.0-0.7); Eosinophils Percent Auto 4.7 % (0.9-7.0); Hematocrit 43.5 % (42.0-54.0); Hemoglobin 13.8 g/dL (14.0-18.0); Immature Granulocytes Abs Auto 0.08 10^3/uL (0.00-0.03); Immature Granulocytes Pct Auto 0.8 % (0.0-0.5); Lymphocytes Absolute Auto 1.8 10^3/uL (1.2-3.8); Lymphocytes Percent Auto 17.1 % (20.5-60.0); Mean Corpuscular HGB Conc 31.7 g/dL (29.9-35.2); Mean Corpuscular Hemoglobin 31.7 pg (25.9-34.0); Mean Corpuscular Volume 99.8 fL (80.0-94.0); Mean Platelet Volume 10.5 fL (9.5-13.5); Monocytes Absolute Auto 0.7 10^3/uL (0.3-0.8); Monocytes Percent Auto 6.6 % (1.7-12.0); Neutrophils Absolute Auto 7.4 10^3/uL (1.4-6.5); Neutrophils Percent Auto 70.5 % (43.0-75.0); Platelet Count 228 10^3/uL (150-450); Red Blood Count 4.36 10^6/uL (4.70-6.10); Red Cell Distribution Width 12.7 % (11.0-15.0); White Blood Count 10.5 10^3/uL (4.0-11.0)
[2024-04-08] MEDS: 0.9 % SODIUM CHLORIDE 1,000 ML 100 ML IV (08:00)
--- OUTSIDE RECORDS SUMMARY | 2024-04-08 08:02 | XMS_ITS | CCD ---
Author Organization [facility] Inform ion Partnership [facility] Care Team Providers Care Opto Mechanical Technician Name Role Phone IRMA, DR HOPKINS Consulting Unavailable IRMA, DR HOPKINS Attending Unavailable [facility], DR GIRON Primary Care Unavailable IRMA, DR HOPKINS Admitting Unavailable HECTOR, DR DALE Isbell Consulting Unavailable Problems Problem Classification Problem Date Documented Da te Episodic/Chronic Alcohol-related disorders (1 source) Alcohol dependence, uncomplicated; Translations: [ALCOHOL DEPENDENCE UNCOMPLICATED] Onset: 05-18-2022 Chronic Other hereditary and degenerative nervous system conditions (4 sources) Mild cognitive impairment, so stated; Translations: [MILD COGNTV IMPAIRMNT UNCRTN/UNKNWN] Onset: 05-13-2022 Chronic Results Test Name Value Interpretation Reference Range Facility MRI BRAIN WO CONon 3 MRI BRAIN WO CON EXAMINATION: MRI BRA IN WO CON, 05/13/2022 1:00 PM EST HISTORY: Mild cognitive disorder COMPARISON: None. TECHNIQUE: MRI of the brain was performed without IV contrast. FINDINGS: CEREBRUM: Moderate to severe diffuse supratentorial atrophy. Moderate to severe white matter T2 and FLAIR signal abnormality with no restricted diffusion. No acute hemorrhage or mass CEREBELLUM: Mild to moderate generalized cerebellar atrophy. No mass BRAINSTEM: No edema, hemorrhage, mass, acute infarction, or inappropriate atrophy. CSF SPACES: Ventricles, cisterns, and sulci are appropriate for age. No hydrocephalus, subarachnoid hemorrhage, or mass. SKULL: No mass or other significant visible lesion. SINUSES: Limited views demonstrate no significant mucosal thickening or fluid. ORBITS: Limited views are unremarkable. OTHER: Diminutive right and enlarged left vertebral artery IMPRESSION: Moderate to severe atrophy and white matter disease No acute infarct Electronically authenticated by: DALE YOUNG Date: 2022-05-13 15:16 Normal [facility] XR TIB_FIB TINY 2Von 05-13-19 23 XR TIB_FIB TINY 2V EXAMINATION: XR TIB_ FIB TINY 2V HISTORY: Foreign body COMPARISON: No relevant comparison available. FINDINGS: RIGHT FINDINGS: BONES: No acute fracture or dislocation. 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 SOFT TISSUES: Metallic radiopaque foreign bodies are identified adjacent to the mid diaphysis of the tibia the largest measuring 4 x 3 mm in size OTHER: Vascular calcifications LEFT FINDINGS: BONES: No acute fracture or dislocation. Moderate degenerative changes of the knee and ankle SOFT TISSUES: Negative. No visible soft tissue swelling. OTHER: Vascular calcifications IMPRESSION: RIGHT CONCLUSION: Radiopaque foreign bodies likely metallic LEFT CONCLUSION: No radiopaque foreign body Electronically authenticated by: DALE YOUNG Date: 2022-05-13 13:51 Normal [facility] MR hand RT wo conon 12-28-19 MR hand RT wo con [facility] [address] [place] [address] MRI Report Signed Patient: Glenna Jara MR#: [id number] : 1940 Acct:[id number] Age/Sex: 80 / M ADM Date: 12/27/20 Loc: [facility] Room: Type: [facility] Attending Dr: Isaac Pham DO Ordering Provider: Isaac Pham DO Date of Service: 12/27/20 MR/MR hand RT wo con: Swelling of right hand;Soft tissue calcification Copies to: Isaac Pham DO MR hand RT wo con 12/27/2020 3:12 PM SIGNS AND SYMPTOMS: Swelling of right hand;Soft tissue calcification PROTOCOL: Multiplanar multisequence MR images of the right hand were obtained without IV contrast. COMPARISON: CT dated 12/21/2020 FINDINGS: There is expansion of the tendon sheath over the dorsum of the second and third metacarpophalangeal junctions increased T2 signal. This is most pronounced over the dorsum of the third digit overlying the metacarpophalangeal junction and corresponds to the area of soft tissue swelling or calcification seen on the prior study. There are lesser degrees of diffuse soft tissue swelling over the dorsum of the hand. The bony structures are in anatomic alignment. There is mild subcortical cystic change along the metacarpophalangeal junctions, greatest in the second and third digits. Joint spaces are otherwise preserved. The bone marrow signal is otherwise preserved. The visualized flexor tendons are grossly intact and within normal limits. MR/MR hand RT wo con IMPRESSION: There is soft tissue swelling over the dorsum of the hand which appears to be centered along the tendon sheaths of the extensor digitorum tendons of the second and third digits and greatest over the metacarpophalangeal junctions. This is in the location of calcification along the extensor digitorum on previous CT. This is nonspecific but may represent sequelae of calcific tendinosis. The overlying soft tissue swelling may represent an infectious or inflammatory etiology. No underlying fluid collection is present to suggest abscess. No underlying bone marrow signal abnormality to suggest osteomyelitis. Impression dictated by: Tristin Calderon M.D.12/27/2020 5:07 PM Dictation Location: [place] [address] Transcribed By: EVARISTO 12/27/201706 Dictated By: Tristin Calderon II, MD 12/27/20 572 Signed By: 12/27/20 170 Normal [facility] Complete Blood Count Auto Di ffon 12-22-2020 Basophils (Bld) [#/Vol] 0.0 10*3/uL Normal 0.0-0.2 [facility] Comment on above: Result Comment: PERF ORMED BY: [place] [address] PATHOLOGIST LOAN PROCESSOR HARDY WAYNE M.D. Performed By: #### B MP, CREAT, CRP #### [facility] [address] [place] [address] [place] Basophils/100 WBC (Bld) 0.5 % Normal . [facility] Comment on above: Performed By: #### B MP, CREAT, CRP #### [facility] [address] [place] [address] [place] Eosinophils (Bld) [#/Vol] 0.2 10*3/uL Normal 0.0-0.45 [facility] Comment on above: Performed By: #### B MP, CREAT, CRP #### [facility] [address] [place] [address] [place] Eosinophils/100 WBC (Bld) 5.2 % Normal . [facility] Comment on above: Performed By: #### B MP, CREAT, CRP #### [address] Erythrocyte distribution width (RBC) [Ratio] 13.8 % Normal 12.0-14.8 [facility] Comment on above: Performed By: #### B MP, CREAT, CRP #### [address] Hematocrit (Bld) [Volume fraction] 41.1 % Normal 38.8-50.0 [facility] Comment on above: Performed By: #### B MP, CREAT, CRP #### [address] Hemoglobin (Bld) [Mass/Vol] 14.0 g/dL Normal 13.0-17.0 [facility] Comment on above: Performed By: #### B MP, CREAT, CRP #### [address] Lymphocytes (Bld) [#/Vol] 1.2 10*3/uL Normal 1.00-4.8 [facility] Comment on above: Performed By: #### B MP, CREAT, CRP #### [address] Lymphocytes/100 WBC (Bld) 30.8 % Normal . [facility] Comment on above: Performed By: #### B MP, CREAT, CRP #### [address] MCH (RBC) [Entitic mass] 32.1 pg Normal 27.5-35.2 [facility] Comment on above: Performed By: #### B MP, CREAT, CRP #### [address] MCV (RBC) [Entitic vol] 94.0 fL Normal 83.5-101 [facility] Comment on above: Performed By: #### B MP, CREAT, CRP #### [address] Mean Corpuscular HGB Conc 34.1 g/dL Normal 32.5-35.6 [facility] Comment on above: Performed By: #### B MP, CREAT, CRP #### [address] Monocytes (Bld) [#/Vol] 0.6 10*3/uL Normal 0.0-0.8 [facility] Comment on above: Performed By: #### B MP, CREAT, CRP #### [address] Monocytes/100 WBC (Bld) 15.3 % Normal . [facility] Comment on above: Performed By: #### B MP, CREAT, CRP #### [address] Neutrophils (Bld) [#/Vol] 1.8 10*3/uL Normal 1.8-7.7 [facility] Comment on above: Performed By: #### B MP, CREAT, CRP #### [address] Neutrophils/100 WBC (Bld) 48.2 % Normal . [facility] Comment on above: Performed By: #### B MP, CREAT, CRP #### [address] Nucleated RBC/100 WBC (Bld) [Ratio] 0.2 % Normal 0-0.5 [facility] Comment on above: Performed By: #### B MP, CREAT, CRP #### [address] Platelet mean volume (Bld) [Entitic vol] 8.5 fL Normal 6.6-10.1 [facility] Comment on above: Performed By: #### B MP, CREAT, CRP #### [address] Platelets (Bld) [#/Vol] 205 10*3/uL Normal 150-450 [facility] Comment on above: Performed By: #### B MP, CREAT, CRP #### [address] [place] [address] [place] RBC (Bld) [#/Vol] 4.37 10*6/uL Normal 3.90-5.60 [facility] Comment on above: Performed By: #### B MP CREAT, CRP #### [address] WBC (Bld) [#/Vol] 3.8 10*3/uL Low 4.5-11.0 [facility] Comment on above: Performed By: #### B MP CREAT, CRP #### [address] Vancomycin,Peakon 12-22-2020 Vancomycin,Peak 27.6 ug/mL Normal 20.0-40.0 [facility] Comment on above: Order Comment: Comme nt ?DRAW 1 HOUR AFTER INFUSION COMPLETES Date of last dose?: 20201222 Time of last dose?: 0300 Result Comment: Last dose: - PERFORMED BY: [place] [address] PATHOLOGIST LOAN PROCESSOR HARDY WAYNE M.D. Performed By: #### B MP CREAT, CRP #### [address] Basic Metabolic Panelon 11-25 Calcium [Mass/Vol] 8.6 mg/dL Normal 8.2-10.2 [facility] Comment on above: Performed By: #### B MP CREAT, CRP #### [address] Chloride [Moles/Vol] 102 mmol/L Normal 95-114 [facility] Comment on above: Performed By: #### B MP CREAT, CRP #### [address] CO2 [Moles/Vol] 22.6 mmol/L Normal 22.0-30.0 [facility] Comment on above: Performed By: #### B MP, CREAT, CRP #### [address] Creatinine [Mass/Vol] 0.96 mg/dL Normal 0.64-1.27 [facility] Comment on above: Performed By: #### B CONNER HERNANDEZ CRP #### [facility] [address] Creatinine Clr Calc Pharmacy 63.71 [facility] Comment on above: Performed By: #### B CONNER HERNANDEZ CRP #### [facility] [address] Estimated GFR ( Aria > 60 Normal [facility] Comment on above: Result Comment: GFR estimated reference range: According to KDOQI guidelines, <60 ml/min/1.73m2 is sufficient to diagnose a patient with chronic kidney disease. Performed By: #### B CONNER HERNANDEZ CRP #### [address] Estimated GFR (Non- Am > 60 Normal [facility] Comment on above: Performed By: #### B CONNER HERNANDEZ CRP #### [address] Glucose [Mass/Vol] 95 mg/dL Normal 70-100 [facility] Comment on above: Result Comment: [place] om Glucose Reference Range is dependent on time and content of last meal. Glucose of more than 200 mg/dL in a nonstressed, ambulatory subject supports the diagnosis of Diabetes Mellitus. ADA recommended reference range Performed By: #### B CONNER HERNANDEZ CRP #### [place] [address] [place] Potassium [Moles/Vol] 4.5 mmol/L Normal 3.5-5.1 [facility] Comment on above: Performed By: #### B CONNER HERNANDEZ CRP #### [place] [address] [place] Sodium [Moles/Vol] 133 mmol/L Low 136-146 [facility] Comment on above: Performed By: #### B CONNER HERNANDEZ CRP #### [place] [address] [place] Urea nitrogen [Mass/Vol] 15 mg/dL Normal 9-23 [facility] Comment on above: Performed By: #### B MP, CREAT, CRP #### [facility] [address] hand RT wo conon 12-22-19 CT hand RT wo con [facility] [address] [place] [address] CT Scan Report Signed Patient: Glenna Jara MR#: [id number] : 1940 Acct:[id number] Age/Sex: 80 / M ADM Date: 12/19/20 Loc: Room: 9S0786-3 Type: ADM INOo Attending Dr: Chinyere Diego MD Ordering Provider: Isaac Pham DO Date of Service: 12/21/20 CT/CT hand RT wo con: Rule out abscess, dorsal index and middle metacarp Copies to: DO Chinyere Go MD CT right hand 12/21/2020. CLINICAL DATA: Dorsal right hand pain, swelling, and redness. TECHNIQUE: CT of the right hand was performed without contrast. Axial, sagittal, and coronal reconstructions were created and reviewed. This CT exam was performed using one or more of the following dose reduction techniques: Automated exposure control, adjustment of the mA and/or kV according to patient size, or use of iterative reconstruction technique. COMPARISON: None. FINDINGS: Generalized soft tissue swelling is noted. There are extensive subcutaneous edematous changes along the dorsal aspects of the wrist and hand. Soft tissue calcifications are present posterior to the head of the third metacarpal. No definite fluid collection suspicious for an abscess is identified. No subcutaneous air is seen. No fracture or dislocation is visualized. There are degenerative changes, greatest at first carpal-metacarpal joint. No bony erosion or destruction suspicious for osteomyelitis is noted. CT/CT hand RT wo con IMPRESSION: 1. Extensive subcutaneous edematous changes along the dorsal aspects of the wrist and hand. 2. Soft tissue calcifications posterior to the head of the third metacarpal. 3. No definite fluid collection suspicious for an abscess. 4. No bony erosion or destruction suspicious for osteomyelitis. Impression dictated by: Cornelius Albert Jr., M.D.12/21/2020 1:10 PM Dictation Location: [place] [address] Transcribed By: [facility] 12/21/20 1310 Dictated By: Cornelius Albert Jr, MD 12/21/20 1254 Signed By: 12/21/20 1310 Normal [facility] Uric Acidon 12-21-2020 Urate [Mass/Vol] 6.7 mg/dL Normal 2.6-7.2 [facility] Comment on above: Result Comment: PERF ORMED BY: [place] [address] PATHOLOGIST LOAN PROCESSOR HARDY WAYNE M.D. Performed By: #### B MP, CREAT, CRP #### [facility] [address] [place] [address] Basic Metabolic Panelon 11-25 Calcium [Mass/Vol] 8.6 mg/dL Normal 8.2-10.2 [facility] Comment on above: Performed By: #### C BC, BMP #### [facility] [address] Chloride [Moles/Vol] 101 mmol/L Normal 95-114 [facility] Comment on above: Performed By: #### C BC, BMP #### [facility] [address] [place] [address] CO2 [Moles/Vol] 20.4 mmol/L Low 22.0-30.0 [facility] Comment on above: Performed By: #### C BC, BMP #### [facility] [address] [place] [id number] [facility] Creatinine [Mass/Vol] 0.95 mg/dL Normal 0.64-1.27 [facility] Comment on above: Performed By: #### C BC, BMP #### [facility] [address] [place] [id number] [place] Creatinine Clr Calc Pharmacy 64.38 Normal [facility] Comment on above: Result Comment: PERF ORMED BY: [place] [address] PATHOLOGIST LOAN PROCESSOR HARDY WAYNE M.D. Performed By: #### C BC, BMP #### [address] Estimated GFR ( Aria > 60 Normal [facility] Comment on above: Result Comment: GFR estimated reference range: According to KDOQI guidelines, <60 ml/min/1.73m2 is sufficient to diagnose a patient with chronic kidney disease. Performed By: #### C BC, BMP #### [address] Estimated GFR (Non- Am > 60 Normal [facility] Comment on above: Performed By: #### C BC, BMP #### [address] Glucose [Mass/Vol] 96 mg/dL Normal 70-100 [facility] Comment on above: Result Comment: [place] Glucose Reference Range is dependent on time and content of last meal. Glucose of more than 200 mg/dL in a nonstressed, ambulatory subject supports the diagnosis of Diabetes Mellitus. ADA recommended reference range Performed By: #### C BC, BMP #### [address] Potassium [Moles/Vol] 4.1 mmol/L Normal 3.5-5.1 [facility] Comment on above: Performed By: #### C BC, BMP #### [address] Sodium [Moles/Vol] 133 mmol/L Low 136-146 [facility] Comment on above: Performed By: #### C BC, BMP #### [address] Urea nitrogen [Mass/Vol] 12 mg/dL Normal 9-23 [facility] Comment on above: Performed By: #### C BC, BMP #### [address] Complete Blood Count Auto Di ffon 12-20-2020 Basophils (Bld) [#/Vol] 0.0 10*3/uL Normal 0.0-0.2 [facility] Comment on above: Result Comment: PERF ORMED BY: [place] [address] PATHOLOGIST LOAN PROCESSOR HARDY WAYNE M.D. Performed By: #### C BC, BMP #### [address] Basophils/100 WBC (Bld) 0.5 % Normal . [facility] Comment on above: Performed By: #### C BC, BMP #### [facility] [address] Eosinophils (Bld) [#/Vol] 0.1 10*3/uL Normal 0.0-0.45 [facility] Comment on above: Performed By: #### C BC, BMP #### [address] Eosinophils/100 WBC (Bld) 2.5 % Normal . [facility] Comment on above: Performed By: #### C BC, BMP #### [address] Erythrocyte distribution width (RBC) [Ratio] 13.7 % Normal 12.0-14.8 [facility] Comment on above: Performed By: #### C VINAY, BMP #### [address] Hematocrit (Bld) [Volume fraction] 41.9 % Normal 38.8-50.0 [facility] Comment on above: Performed By: #### C BC, BMP #### [address] Hemoglobin (Bld) [Mass/Vol] 14.3 g/dL Normal 13.0-17.0 [facility] Comment on above: Performed By: #### C BC, BMP #### [address] Lymphocytes (Bld) [#/Vol] 0.9 10*3/uL Low 1.00-4.8 [facility] Comment on above: Performed By: #### C BC, BMP #### [facility] [address] Lymphocytes/100 WBC (Bld) 18.2 % Normal . [facility] Comment on above: Performed By: #### C BC, BMP #### [address] MCH (RBC) [Entitic mass] 31.9 pg Normal 27.5-35.2 [facility] Comment on above: Performed By: #### C BC, BMP #### [address] MCV (RBC) [Entitic vol] 93.5 fL Normal 83.5-101 [facility] Comment on above: Performed By: #### C VINAY, BMP #### [address] Mean Corpuscular HGB Conc 34.1 g/dL Normal 32.5-35.6 [facility] Comment on above: Performed By: #### C BC, BMP #### [address] Monocytes (Bld) [#/Vol] 0.5 10*3/uL Normal 0.0-0.8 [facility] Comment on above: Performed By: #### C BC, BMP #### [address] Monocytes/100 WBC (Bld) 10.3 % Normal . [facility] Comment on above: Performed By: #### C BC, BMP #### [address] Neutrophils (Bld) [#/Vol] 3.6 10*3/uL Normal 1.8-7.7 [facility] Comment on above: Performed By: #### C BC, BMP #### [address] Neutrophils/100 WBC (Bld) 68.5 % Normal . [facility] Comment on above: Performed By: #### C BC, BMP #### [address] Nucleated RBC/100 WBC (Bld) [Ratio] 0.1 % Normal 0-0.5 [facility] Comment on above: Performed By: #### C VINAY, BMP #### [address] Platelet mean volume (Bld) [Entitic vol] 8.8 fL Normal 6.6-10.1 [facility] Comment on above: Performed By: #### C VINAY, BMP #### [address] Platelets (Bld) [#/Vol] 204 10*3/uL Normal 150-450 [facility] Comment on above: Performed By: #### C VINAY, BMP #### [address] RBC (Bld) [#/Vol] 4.48 10*6/uL Normal 3.90-5.60 [facility] Comment on above: Performed By: #### C VINAY, BMP #### [address] WBC (Bld) [#/Vol] 5.2 10*3/uL Normal 4.5-11.0 [facility] Comment on above: Performed By: #### C VINAY, BMP #### [address] Basic Metabolic Panelon 11-25 Calcium [Mass/Vol] 9.2 mg/dL Normal 8.2-10.2 [facility] Comment on above: Performed By: #### B MP, CREAT, CRP #### [address] Chloride [Moles/Vol] 101 mmol/L Normal 95-114 [facility] Comment on above: Performed By: #### B MP, CREAT, CRP #### [address] CO2 [Moles/Vol] 21.7 mmol/L Low 22.0-30.0 [facility] Comment on above: Performed By: #### B MP, CREAT, CRP #### [facility] [address] Glucose [Mass/Vol] 104 mg/dL High 70-100 [facility] Comment on above: Result Comment: [facility] Glucose Reference Range is dependent on time and content of last meal. Glucose of more than 200 mg/dL in a nonstressed, ambulatory subject supports the diagnosis of Diabetes Mellitus. ADA recommended reference range Performed By: #### B MP CREAT, CRP #### [facility] [address] Potassium [Moles/Vol] 4.5 mmol/L Normal 3.5-5.1 [facility] Comment on above: Performed By: #### B MARY CREAT, CRP #### [address] Sodium [Moles/Vol] 135 mmol/L Low 136-146 [facility] Comment on above: Performed By: #### B MARY CREAT, CRP #### [address] Urea nitrogen [Mass/Vol] 12 mg/dL Normal 9-23 [facility] Comment on above: Performed By: #### B CONNER HERNANDEZ, CRP #### [address] Blood Cultureon 12-19-2020 Bacteria identified Cx Nom (Bld) NO GROWTH 5 DAYS PERFORMED BY: [place] [address] PATHOLOGIST LOAN PROCESSOR HARDY WAYNE M.D. [facility] Comment on above: Performed By: #### C UBLD, CBC #### [place] [address] [place] Bacteria identified Cx Nom (Bld) NO GROWTH 5 DAYS PERFORMED BY: [place] [address] PATHOLOGIST LOAN PROCESSOR HARDY WAYNE M.D. [facility] Comment on above: Performed By: #### C UBLD, CBC #### [address] C-Reactive Proteinon 021 C-Reactive Protein 10.5 mg/dL High 0.0-1.0 [facility] Comment on above: Result Comment: PERF ORMED BY: [address] [place] [address] PATHOLOGIST LOAN PROCESSOR HARDY WAYNE M.D. Performed By: #### B MP, CREAT, CRP #### [address] COVID-19 FRon 12-19-2020 SARS-CoV-2 (COVID-19) RNA TIFFANIE+probe Ql (Unsp spec) Negative Normal Negative [facility] Comment on above: Order Comment: Healt hcare Worker?: N Result Comment: Testing for SARS-CoV-2 by RT-PCR This test was developed and its performance characteristics determined by [employer] and validated at the [facility]. This test has not been FDA cleared or approved. This test has been authorized by FDA under an Emergency Use Authorization (EUA). This test has been validated in accordance with the FDA's Guidance Document (Policy for Diagnostics Testing in Laboratories Certified to Perform High Complexity Testing under CLIA prior to Emergency Use Authorization for Coronavirus Disease-2019 during the Public Health Emergency) issued on July 27, 2019. This test is only authorized for the duration of time the declaration that circumstances exist justifying the authorization of the emergency use of in vitro diagnostic tests for detection of SARS-CoV-2 virus and/or diagnosis of COVID-19 infection under section 564(b)(1) of the Act, 21 U.S.C. 360bbb-3(b)(1), unless the authorization is terminated or revoked sooner. PERFORMED BY: [address] [place] [address] PATHOLOGIST LOAN PROCESSOR HARDY WAYNE M.D. Performed By: #### C OVID 19 [facility] #### [place] [id number] [facility] Complete Blood Count Auto Di ffon 12-19-2020 Basophils (Bld) [#/Vol] 0.0 10*3/uL Normal 0.0-0.2 [facility] Comment on above: Result Comment: PERF ORMED BY: [place] [address] PATHOLOGIST LOAN PROCESSOR HARDY WAYNE M.D. Performed By: #### C UBLD, CBC #### [place] [address] [place] Basophils/100 WBC (Bld) 0.3 % Normal . [facility] Comment on above: Performed By: #### C UBLD, CBC #### [place] [address] [place] Eosinophils (Bld) [#/Vol] 0.1 10*3/uL Normal 0.0-0.45 [facility] Comment on above: Performed By: #### C UBLD, CBC #### [address] Eosinophils/100 WBC (Bld) 1.3 % Normal . [facility] Comment on above: Performed By: #### C UBLD, CBC #### [address] Erythrocyte distribution width (RBC) [Ratio] 13.6 % Normal 12.0-14.8 [facility] Comment on above: Performed By: #### C UBLD, CBC #### [address] Hematocrit (Bld) [Volume fraction] 47.3 % Normal 38.8-50.0 [facility] Comment on above: Performed By: #### C UBLD, CBC #### [place] [address] [place] Hemoglobin (Bld) [Mass/Vol] 15.9 g/dL Normal 13.0-17.0 [facility] Comment on above: Performed By: #### C UBLD, CBC #### [address] Lymphocytes (Bld) [#/Vol] 1.0 10*3/uL Normal 1.00-4.8 [facility] Comment on above: Performed By: #### C UBLD, CBC #### [facility] [address] [place] [address] [place] Lymphocytes/100 WBC (Bld) 14.6 % Normal . [facility] Comment on above: Performed By: #### C UBLD, CBC #### [facility] [address] MCH (RBC) [Entitic mass] 31.9 pg Normal 27.5-35.2 [facility] Comment on above: Performed By: #### C UBLD, CBC #### [facility] [address] MCV (RBC) [Entitic vol] 95.0 fL Normal 83.5-101 [facility] Comment on above: Performed By: #### C UBLD, CBC #### [facility] [address] Mean Corpuscular HGB Conc 33.5 g/dL Normal 32.5-35.6 [facility] Comment on above: Performed By: #### C UBLD, CBC #### [facility] [address] [place] [address] [place] Monocytes (Bld) [#/Vol] 0.6 10*3/uL Normal 0.0-0.8 [facility] Comment on above: Performed By: #### C UBLD, CBC #### [facility] [address] [place] [address] [place] Monocytes/100 WBC (Bld) 8.3 % Normal . [facility] Comment on above: Performed By: #### C UBLD, CBC #### [facility] [address] [place] [address] [place] Neutrophils (Bld) [#/Vol] 5.4 10*3/uL Normal 1.8-7.7 [facility] Comment on above: Performed By: #### C UBLD, CBC #### [facility] [address] [place] [address] [place] Neutrophils/100 WBC (Bld) 75.5 % Normal . [facility] Comment on above: Performed By: #### C UBLD, CBC #### [address] Nucleated RBC/100 WBC (Bld) [Ratio] 0.1 % Normal 0-0.5 [facility] Comment on above: Performed By: #### C UBLD, CBC #### [address] Platelet mean volume (Bld) [Entitic vol] 9.4 fL Normal 6.6-10.1 [facility] Comment on above: Performed By: #### C UBLD, CBC #### [address] Platelets (Bld) [#/Vol] 232 10*3/uL Normal 150-450 [facility] Comment on above: Performed By: #### C UBLD, CBC #### [address] RBC (Bld) [#/Vol] 4.98 10*6/uL Normal 3.90-5.60 [facility] Comment on above: Performed By: #### C UBLD, CBC #### [address] WBC (Bld) [#/Vol] 7.1 10*3/uL Normal 4.5-11.0 [facility] Comment on above: Performed By: #### C UBLD, CBC #### [address] Creatinineon 12-19-2020 Creatinine [Mass/Vol] 1.05 mg/dL Normal 0.64-1.27 [facility] Comment on above: Performed By: #### B MP, CREAT, CRP #### [address] Creatinine Clr [facility]acy 58.25 [facility] Comment on above: Performed By: #### B MP, CREAT, CRP #### [address] Estimated GFR ( Aria > 60 Normal [facility] Comment on above: Result Comment: GFR estimated reference range: According to KDOQI guidelines, <60 ml/min/1.73m2 is sufficient to diagnose a patient with chronic kidney disease. Performed By: #### B CONNER HERNANDEZ, CRP #### [facility] [address] Estimated GFR (Non- Am > 60 Normal [facility] Comment on above: Performed By: #### B MPCONNER, CRP #### [facility] [address] [place] [id number] [facility] Ammoniaon 11-18-2020 Ammonia (P) [Moles/Vol] 21 umol/L Normal [facility] Comment on above: Result Comment: PERF ORMED BY: [place] [address] PATHOLOGIST LOAN PROCESSOR HARDY WAYNE M.D. Performed By: #### A MM #### [address] Encounters Encounter Date Encounter Type Care Provider Facility Start: 05-13-2022 End: 05-14-[address] SANDEEP SOLIS Facility: Payers Date Payer Category Payer Medicare [id number] 1940 Unknown [id number] Clinical Note 05-13-2022 Note Date & Type Note Facility 05-13-2022 Note PROCEDURE: XR HUMERU S LT MIN 2V COMPARISON: None. HISTORY: Foreign body FINDINGS: BONES:No acute fracture or dislocation. Moderate acromioclavicular and glenohumeral joint osteoarthritis with joint space narrowing and marginal osteophyte formation SOFT TISSUES:Negative. No visible soft tissue swelling. EFFUSION:None visible. OTHER: Negative. IMPRESSION: Osteoarthritis No radiopaque foreign body Electronically authenticated by: DALE YOUNG Date: 2022-05-13 13:49 [facility] Summary Purpose Family History No Family History Records FoundNo Family History Records Found Advance Directives No Advanced Directives Records FoundNo Advanced Directives Records Found Additional Source Comments (unrecognized sect ion and content) No Status Records FoundNo Status Records Found INFORMATION SOURCE (unrecogn ized section and content) DATE CREATED AUTHOR 06/11/2021 [facility] DATE CREATED AUTHOR AUTHOR'Claudia ABAD 05/19/2022 [facility] FOR RECORDS PERTAINING TO PATIENTS WHO ARE OR HAVE BEEN ENROLLED IN A CHEMICAL DEPENDENCY/SUBSTANCEABUSE PROGRAM, SOME INFORMATION MAY BE OMITTED. This clinical summary was aggregated from multiple sources. Caution should be exercised in using it in the provision of clinical care. This summary normalizes information from multiple sources, and as a consequence, information in this document may materially change the coding, format and clinical context of patient data. In addition, data may be omitted in some cases. CLINICAL DECISIONS SHOULD BE BASED ON THE PRIMARY CLINICAL RECORDS. [employer] provides no warranty or guarantee of the accuracy or completeness of information in this document.
[2024-04-08 08:10] LABS: Alanine Aminotransferase 49 U/L (16-63); Albumin Level 3.7 g/dL (3.4-5.0); Alkaline Phosphatase 91 U/L (46-116); Anion Gap 13.4; Aspartate Amino Transferase 24 U/L (15-37); BUN Creatinine Ratio 21.9; Bilirubin Total 0.4 mg/dL (0.2-1.0); Carbon Dioxide 29.7 mmol/L (21.0-32.0); Chloride 109 mmol/L (98-107); Estimated GFR (African America >60 (>=60 mL/min/1.73m^2); Estimated GFR (Non-African Ame 54 (>=60 mL/min/1.73m^2); Globulin 3.6 g/dL; Glucose 125 mg/dL (74-106); Potassium 5.1 mmol/L (3.5-5.1); Sodium 147 mmol/L (136-145); Total Protein 7.3 g/dL (6.4-8.2)
[2024-04-08 08:12] LABS: Troponin I High Sensitivity 7.1 pg/mL (4.0-76.1)
[2024-04-08 08:15] LABS: Lactate/Lactic Acid 1.6 mmol/L (0.4-2.0)
[2024-04-08 08:23] LABS: D Dimer 0.79 mg/L FEU (<=0.59)
--- NOTE | 2024-04-08 08:44 | CT_ITS ---
The [address] [address] Patient Name: GLENNA BHANDARI MRN: [id number] date: 1940 Sex: M Assigned Patient Location: ER Current Patient Location: Accession/Order Number: [id number] Exam Date: 04/08/2024 09:00 Report Date: 04/08/2024 09:38 At the request of: IVORY COYLE Procedure: CT angio chest EXAM: CT angio chest HISTORY: Chest pain/elevated D-dimer COMPARISON: None. TECHNIQUE: Routine CTA chest with intravenous contrast. Dose reduction techniques were achieved by using automated exposure control and/or adjustment of mA and/or kV according to patient size and/or use of iterative reconstruction technique. FINDINGS: There is contrast within both the left and right heart. There is no pulmonary embolus. There is no right heart strain. The heart size is upper limits normal. There is severe multivessel coronary calcifications. There is moderately severe calcified and noncalcified atheromatous plaque along the thoracic and proximal abdominal aorta. There is mild atheromatous plaque within both subclavian arteries. There are severe atheromatous calcifications along the splenic artery. There is no consolidation, pleural effusion or pulmonary vascular congestion. There is no pneumothorax. There is centrilobular emphysema. There is a 2.5 mm noncalcified pleural-based right upper lobe nodule (series 4 image 28). A calcified granuloma within the left lower lobe. There are no pathologically enlarged lymph nodes. There calcified subcarinal and left hilar lymph nodes secondary to old granulomatous disease. The trachea, esophagus and thyroid gland are unremarkable. There are numerous gravel-like gallstones within the dependent portion of the gallbladder. There are numerous small calcified granuloma scattered within the spleen. The bony structures appear osteopenic. There are degenerative changes at both glenohumeral articulations, severe on the left and mild on the right. There are subchondral cysts within the right greater tuberosity. There are old healed fractures posterior aspect of the left ninth, 10th and 11th ribs there is slight dextroscoliosis of the thoracic spine. There are mild discogenic degenerative changes at numerous levels along the spine. CT/CT angio chest IMPRESSION: There is no pulmonary embolus. There is no right heart strain. Severe multivessel coronary calcifications. Atherosclerotic disease as otherwise described. There is no consolidation, pleural effusion or pulmonary vascular congestion. There is centrilobular emphysema. There is a 2.5 mm noncalcified pleural-based right upper lobe nodule (series 4 image 28). There are no pathologically enlarged lymph nodes. A CT examination of the chest in 12 months is recommended. Cholelithiasis. 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 Chronic osseous findings as described in the body the report. Electronically authenticated by: PERCY PERRY Date: 04/08/2024 09:38
== END 2024-04-08 11:51 | disposition home or self-care (01) ==
PROVIDERS: Emergency Provider Emergency Medicine Emergency Medical Services; PCP Internal Medicine
DX: K80.20 Calculus of gallbladder without cholecystitis without obstruction (principal); F03.90 Unspecified dementia, unspecified severity, without behavioral disturbance, psychotic disturbance, mood disturbance, and anxiety; Z91.81 History of falling; J44.9 Chronic obstructive pulmonary disease, unspecified; I25.10 Atherosclerotic heart disease of native coronary artery without angina pectoris; Z66 Do not resuscitate; R79.89 Other specified abnormal findings of blood chemistry
CPT/HCPCS: 36415; 71045; 71275; 80053; 83605; 84484; 85025; 85378; 93005; 99285; Q9967

== ENCOUNTER 2024-04-19 10:37 | Emergency (ER) | payer OTHER, SELFPAY ==
[2024-04-19 10:39] VITALS: BP 94/63; PULSE 84; TEMP 36.5; O2SAT 98
--- OUTSIDE RECORDS SUMMARY | 2024-04-19 10:44 | XMS_ITS | CCD ---
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 Role Phone IRMA, DR HOPKINS Consulting Unavailable IRMA, DR HOPKINS Attending Unavailable [facility], DR GIRON Primary Care Unavailable IRMA, DR [...] by: DALE YOUNG Date: 2022-05-13 15:16 Normal [facility] XR TIB_FIB TINY 2Von 05-13-19 23 [...] by: DALE YOUNG Date: 2022-05-13 13:51 Normal [facility] MR hand RT wo conon 12-28-19 MR hand RT wo con [facility] [place] [address] [place] [address] MRI Report Signed Patient: Glenna Jara MR#: [id number] : 1940 Acct:[id number] Age/Sex: 80 / M ADM Date: 12/27/20 Loc: [facility] Room: Type: [facility] Attending Dr: Isaac Pham DO Ordering Provider: [...] Tristin Calderon M.D.12/27/2020 5:07 PM Dictation Location: [place] [address] Transcribed By: EVARISTO 12/27/201706 Dictated By: Tristin Calderon II, MD 12/27/20 343 Signed By: 12/27/20 170 Normal [facility] Complete Blood Count Auto Di ffon 12-22-2020 Basophils (Bld) [#/Vol] 0.0 10*3/uL Normal 0.0-0.2 [facility] Comment on above: Result Comment: PERF ORMED BY: [place] [id number] PATHOLOGIST COUNTERPERSON HARDY WAYNE M.D. Performed By: #### B MP, CREAT, CRP #### [facility] [address] [place] [address] [place] Basophils/100 WBC (Bld) 0.5 % Normal . [facility] Comment on above: Performed By: #### B MP, CREAT, CRP #### [facility] [address] [place] [address] [place] Eosinophils (Bld) [#/Vol] 0.2 10*3/uL Normal 0.0-0.45 [facility] Comment on above: Performed By: #### B MP, CREAT, CRP #### [facility] [address] [place] [address] [place] Eosinophils/100 WBC (Bld) 5.2 % Normal . [facility] Comment on above: Performed By: #### B MP, CREAT, CRP #### [address] Erythrocyte distribution width (RBC) [Ratio] 13.8 % Normal 12.0-14.8 [facility] Comment on above: Performed By: #### B MP, CREAT, CRP #### [address] Hematocrit (Bld) [Volume fraction] 41.1 % Normal 38.8-50.0 [facility] Comment on above: Performed By: #### B MP, CREAT, CRP #### [address] Hemoglobin (Bld) [Mass/Vol] 14.0 g/dL Normal 13.0-17.0 [facility] Comment on above: Performed By: #### B MP, CREAT, CRP #### [address] Lymphocytes (Bld) [#/Vol] 1.2 10*3/uL Normal 1.00-4.8 [facility] Comment on above: Performed By: #### B MP, CREAT, CRP #### [address] Lymphocytes/100 WBC (Bld) 30.8 % Normal . [facility] Comment on above: Performed By: #### B MP, CREAT, CRP #### [address] MCH (RBC) [Entitic mass] 32.1 pg Normal 27.5-35.2 [facility] Comment on above: Performed By: #### B MP, CREAT, CRP #### [address] MCV (RBC) [Entitic vol] 94.0 fL Normal 83.5-101 [facility] Comment on above: Performed By: #### B MP, CREAT, CRP #### [address] Mean Corpuscular HGB Conc 34.1 g/dL Normal 32.5-35.6 [facility] Comment on above: Performed By: #### B MP, CREAT, CRP #### [address] Monocytes (Bld) [#/Vol] 0.6 10*3/uL Normal 0.0-0.8 [facility] Comment on above: Performed By: #### B MP, CREAT, CRP #### [address] Monocytes/100 WBC (Bld) 15.3 % Normal . [facility] Comment on above: Performed By: #### B MP, CREAT, CRP #### [address] Neutrophils (Bld) [#/Vol] 1.8 10*3/uL Normal 1.8-7.7 [facility] Comment on above: Performed By: #### B MP, CREAT, CRP #### [address] Neutrophils/100 WBC (Bld) 48.2 % Normal . [facility] Comment on above: Performed By: #### B MP, CREAT, CRP #### [address] Nucleated RBC/100 WBC (Bld) [Ratio] 0.2 % Normal 0-0.5 [facility] Comment on above: Performed By: #### B MP, CREAT, CRP #### [address] Platelet mean volume (Bld) [Entitic vol] 8.5 fL Normal 6.6-10.1 [facility] Comment on above: Performed By: #### B MP, CREAT, CRP #### [address] Platelets (Bld) [#/Vol] 205 10*3/uL Normal 150-450 [facility] Comment on above: Performed By: #### B MP, CREAT, CRP #### [address] [place] [address] [place] RBC (Bld) [#/Vol] 4.37 10*6/uL Normal 3.90-5.60 [facility] Comment on above: Performed By: #### B MP CREAT, CRP #### [address] WBC (Bld) [#/Vol] 3.8 10*3/uL Low 4.5-11.0 [facility] Comment on above: Performed By: #### B MP CREAT, CRP #### [address] Vancomycin,Peakon 12-22-2020 Vancomycin,Peak 27.6 ug/mL Normal 20.0-40.0 [facility] Comment on above: Order Comment: Comme nt ?DRAW 1 HOUR AFTER INFUSION COMPLETES Date of last dose?: 20201222 Time of last dose?: 0300 Result Comment: Last dose: - PERFORMED BY: [place] [id number] PATHOLOGIST COUNTERPERSON HARDY WAYNE M.D. Performed By: #### B MP CREAT, CRP #### [address] Basic Metabolic Panelon 11-25 Calcium [Mass/Vol] 8.6 mg/dL Normal 8.2-10.2 [facility] Comment on above: Performed By: #### B MP CREAT, CRP #### [address] Chloride [Moles/Vol] 102 mmol/L Normal 95-114 [facility] Comment on above: Performed By: #### B MP CREAT, CRP #### [address] CO2 [Moles/Vol] 22.6 mmol/L Normal 22.0-30.0 [facility] Comment on above: Performed By: #### B MP, CREAT, CRP #### [address] Creatinine [Mass/Vol] 0.96 mg/dL Normal 0.64-1.27 [facility] Comment on above: Performed By: #### B CONNER HERNANDEZ CRP #### [facility] [address] Creatinine Clr Calc Pharmacy 63.71 [facility] Comment on above: Performed By: #### B CONNER HERNANDEZ CRP #### [facility] [address] Estimated GFR ( Aria > 60 Normal [facility] Comment on above: Result Comment: GFR estimated reference range: According to KDOQI guidelines, <60 ml/min/1.73m2 is sufficient to diagnose a patient with chronic kidney disease. Performed By: #### B CONNER HERNANDEZ CRP #### [address] Estimated GFR (Non- Am > 60 Normal [facility] Comment on above: Performed By: #### B CONNER HERNANDEZ CRP #### [address] Glucose [Mass/Vol] 95 mg/dL Normal 70-100 [facility] Comment on above: Result Comment: [place] Glucose Reference Range is dependent on time and content of last meal. Glucose of more than 200 mg/dL in a nonstressed, ambulatory subject supports the diagnosis of Diabetes Mellitus. ADA recommended reference range Performed By: #### B CONNER HERNANDEZ CRP #### [place] [address] [place] Potassium [Moles/Vol] 4.5 mmol/L Normal 3.5-5.1 [facility] Comment on above: Performed By: #### B CONNER HERNANDEZ CRP #### [place] [address] [place] Sodium [Moles/Vol] 133 mmol/L Low 136-146 [facility] Comment on above: Performed By: #### B CONNER HERNANDEZ CRP #### [place] [address] [place] Urea nitrogen [Mass/Vol] 15 mg/dL Normal 9-23 [facility] Comment on above: Performed By: #### B MP, CREAT, CRP #### [facility] [address] hand RT wo conon 12-22-19 CT hand RT wo con [facility] [place] [address] [place] [address] CT Scan Report Signed Patient: Glenna Jara MR#: [id number] : 1940 Acct:[id number] Age/Sex: 80 / M ADM Date: 12/19/20 Loc: Room: 0Z6196-4 Type: ADM INOo Attending Dr: Chinyere Diego [...] Albert Jr., M.D.12/21/2020 1:10 PM Dictation Location: [place] [address] Transcribed By: [facility] 12/21/20 1310 Dictated By: Cornelius Albert Jr, MD 12/21/20 1254 Signed By: 12/21/20 1310 Normal [facility] Uric Acidon 12-21-2020 Urate [Mass/Vol] 6.7 mg/dL Normal 2.6-7.2 [facility] Comment on above: Result Comment: PERF ORMED BY: [place] [id number] PATHOLOGIST COUNTERPERSON HARDY WAYNE M.D. Performed By: #### B MP, CREAT, CRP #### [facility] [address] [place] [address] Basic Metabolic Panelon 11-25 Calcium [Mass/Vol] 8.6 mg/dL Normal 8.2-10.2 [facility] Comment on above: Performed By: #### C BC, BMP #### [facility] [address] Chloride [Moles/Vol] 101 mmol/L Normal 95-114 [facility] Comment on above: Performed By: #### C BC, BMP #### [facility] [address] [place] [address] CO2 [Moles/Vol] 20.4 mmol/L Low 22.0-30.0 [facility] Comment on above: Performed By: #### C BC, BMP #### [facility] [address] [place] [id number] [facility] Creatinine [Mass/Vol] 0.95 mg/dL Normal 0.64-1.27 [facility] Comment on above: Performed By: #### C BC, BMP #### [facility] [address] [place] [id number] [place] Creatinine Clr Calc Pharmacy 64.38 Normal [facility] Comment on above: Result Comment: PERF ORMED BY: [place] [id number] PATHOLOGIST COUNTERPERSON HARDY WAYNE M.D. Performed By: #### C BC, BMP #### [address] Estimated GFR ( Aria > 60 Normal [facility] Comment on above: Result Comment: GFR estimated reference range: According to KDOQI guidelines, <60 ml/min/1.73m2 is sufficient to diagnose a patient with chronic kidney disease. Performed By: #### C BC, BMP #### [address] Estimated GFR (Non- Am > 60 Normal [facility] Comment on above: Performed By: #### C BC, BMP #### [address] Glucose [Mass/Vol] 96 mg/dL Normal 70-100 [facility] Comment on above: Result Comment: [place] om Glucose Reference Range is dependent on time and content of last meal. Glucose of more than 200 mg/dL in a nonstressed, ambulatory subject supports the diagnosis of Diabetes Mellitus. ADA recommended reference range Performed By: #### C BC, BMP #### [address] Potassium [Moles/Vol] 4.1 mmol/L Normal 3.5-5.1 [facility] Comment on above: Performed By: #### C BC, BMP #### [address] Sodium [Moles/Vol] 133 mmol/L Low 136-146 [facility] Comment on above: Performed By: #### C BC, BMP #### [address] Urea nitrogen [Mass/Vol] 12 mg/dL Normal 9-23 [facility] Comment on above: Performed By: #### C BC, BMP #### [address] Complete Blood Count Auto Di ffon 12-20-2020 Basophils (Bld) [#/Vol] 0.0 10*3/uL Normal 0.0-0.2 [facility] Comment on above: Result Comment: PERF ORMED BY: [place] [id number] PATHOLOGIST COUNTERPERSON HARDY WAYNE M.D. Performed By: #### C BC, BMP #### [address] Basophils/100 WBC (Bld) 0.5 % Normal . [facility] Comment on above: Performed By: #### C BC, BMP #### [facility] [address] Eosinophils (Bld) [#/Vol] 0.1 10*3/uL Normal 0.0-0.45 [facility] Comment on above: Performed By: #### C BC, BMP #### [address] Eosinophils/100 WBC (Bld) 2.5 % Normal . [facility] Comment on above: Performed By: #### C BC, BMP #### [address] Erythrocyte distribution width (RBC) [Ratio] 13.7 % Normal 12.0-14.8 [facility] Comment on above: Performed By: #### C VINAY, BMP #### [address] Hematocrit (Bld) [Volume fraction] 41.9 % Normal 38.8-50.0 [facility] Comment on above: Performed By: #### C BC, BMP #### [address] Hemoglobin (Bld) [Mass/Vol] 14.3 g/dL Normal 13.0-17.0 [facility] Comment on above: Performed By: #### C BC, BMP #### [address] Lymphocytes (Bld) [#/Vol] 0.9 10*3/uL Low 1.00-4.8 [facility] Comment on above: Performed By: #### C BC, BMP #### [place] [address] Lymphocytes/100 WBC (Bld) 18.2 % Normal . [facility] Comment on above: Performed By: #### C BC, BMP #### [address] MCH (RBC) [Entitic mass] 31.9 pg Normal 27.5-35.2 [facility] Comment on above: Performed By: #### C BC, BMP #### [address] MCV (RBC) [Entitic vol] 93.5 fL Normal 83.5-101 [facility] Comment on above: Performed By: #### C VINAY, BMP #### [address] Mean Corpuscular HGB Conc 34.1 g/dL Normal 32.5-35.6 [facility] Comment on above: Performed By: #### C BC, BMP #### [address] Monocytes (Bld) [#/Vol] 0.5 10*3/uL Normal 0.0-0.8 [facility] Comment on above: Performed By: #### C BC, BMP #### [address] Monocytes/100 WBC (Bld) 10.3 % Normal . [facility] Comment on above: Performed By: #### C BC, BMP #### [address] Neutrophils (Bld) [#/Vol] 3.6 10*3/uL Normal 1.8-7.7 [facility] Comment on above: Performed By: #### C BC, BMP #### [address] Neutrophils/100 WBC (Bld) 68.5 % Normal . [facility] Comment on above: Performed By: #### C BC, BMP #### [address] Nucleated RBC/100 WBC (Bld) [Ratio] 0.1 % Normal 0-0.5 [facility] Comment on above: Performed By: #### C VINAY, BMP #### [address] Platelet mean volume (Bld) [Entitic vol] 8.8 fL Normal 6.6-10.1 [facility] Comment on above: Performed By: #### C VINAY, BMP #### [address] Platelets (Bld) [#/Vol] 204 10*3/uL Normal 150-450 [facility] Comment on above: Performed By: #### C VINAY, BMP #### [address] RBC (Bld) [#/Vol] 4.48 10*6/uL Normal 3.90-5.60 [facility] Comment on above: Performed By: #### C VINAY, BMP #### [address] WBC (Bld) [#/Vol] 5.2 10*3/uL Normal 4.5-11.0 [facility] Comment on above: Performed By: #### C VINAY, BMP #### [address] Basic Metabolic Panelon 11-25 Calcium [Mass/Vol] 9.2 mg/dL Normal 8.2-10.2 [facility] Comment on above: Performed By: #### B MP, CREAT, CRP #### [address] Chloride [Moles/Vol] 101 mmol/L Normal 95-114 [facility] Comment on above: Performed By: #### B MP, CREAT, CRP #### [address] CO2 [Moles/Vol] 21.7 mmol/L Low 22.0-30.0 [facility] Comment on above: Performed By: #### B MP, CREAT, CRP #### [facility] [address] Glucose [Mass/Vol] 104 mg/dL High 70-100 [facility] Comment on above: Result Comment: [facility] Glucose Reference Range is dependent on time and content of last meal. Glucose of more than 200 mg/dL in a nonstressed, ambulatory subject supports the diagnosis of Diabetes Mellitus. ADA recommended reference range Performed By: #### B MP CREAT, CRP #### [facility] [address] Potassium [Moles/Vol] 4.5 mmol/L Normal 3.5-5.1 [facility] Comment on above: Performed By: #### B MARY CREAT, CRP #### [address] Sodium [Moles/Vol] 135 mmol/L Low 136-146 [facility] Comment on above: Performed By: #### B MARY CREAT, CRP #### [address] Urea nitrogen [Mass/Vol] 12 mg/dL Normal 9-23 [facility] Comment on above: Performed By: #### B CONNER HERNANDEZ, CRP #### [address] Blood Cultureon 12-19-2020 Bacteria identified Cx Nom (Bld) NO GROWTH 5 DAYS PERFORMED BY: [place] [id number] PATHOLOGIST COUNTERPERSON HARDY WAYNE M.D. [facility] Comment on above: Performed By: #### C UBLD, CBC #### [place] [address] [place] Bacteria identified Cx Nom (Bld) NO GROWTH 5 DAYS PERFORMED BY: [place] [id number] PATHOLOGIST COUNTERPERSON HARDY WAYNE M.D. [facility] Comment on above: Performed By: #### C UBLD, CBC #### [address] C-Reactive Proteinon 021 C-Reactive Protein 10.5 mg/dL High 0.0-1.0 [facility] Comment on above: Result Comment: PERF ORMED BY: [address] [place] [address] PATHOLOGIST COUNTERPERSON HARDY WAYNE M.D. Performed By: #### B MP, CREAT, CRP #### [address] COVID-19 FRon 12-19-2020 SARS-CoV-2 (COVID-19) RNA TIFFANIE+probe Ql (Unsp spec) Negative Normal Negative [facility] Comment on above: Order Comment: Healt hcare Worker?: N Result Comment: Testing for SARS-CoV-2 by RT-PCR This test was developed and its performance characteristics determined by [employer] and validated at the [facility]. This test has not been FDA [...] is terminated or revoked sooner. PERFORMED BY: [address] [place] [address] PATHOLOGIST COUNTERPERSON HARDY WAYNE M.D. Performed By: #### C OVID 19 [facility] #### [place] [id number] [facility] Complete Blood Count Auto Di ffon 12-19-2020 Basophils (Bld) [#/Vol] 0.0 10*3/uL Normal 0.0-0.2 [facility] Comment on above: Result Comment: PERF ORMED BY: [place] [id number] PATHOLOGIST COUNTERPERSON HARDY WAYNE M.D. Performed By: #### C UBLD, CBC #### [place] [address] [place] Basophils/100 WBC (Bld) 0.3 % Normal . [facility] Comment on above: Performed By: #### C UBLD, CBC #### [place] [address] [place] Eosinophils (Bld) [#/Vol] 0.1 10*3/uL Normal 0.0-0.45 [facility] Comment on above: Performed By: #### C UBLD, CBC #### [address] Eosinophils/100 WBC (Bld) 1.3 % Normal . [facility] Comment on above: Performed By: #### C UBLD, CBC #### [address] Erythrocyte distribution width (RBC) [Ratio] 13.6 % Normal 12.0-14.8 [facility] Comment on above: Performed By: #### C UBLD, CBC #### [address] Hematocrit (Bld) [Volume fraction] 47.3 % Normal 38.8-50.0 [facility] Comment on above: Performed By: #### C UBLD, CBC #### [place] [address] [place] Hemoglobin (Bld) [Mass/Vol] 15.9 g/dL Normal 13.0-17.0 [facility] Comment on above: Performed By: #### C UBLD, CBC #### [address] Lymphocytes (Bld) [#/Vol] 1.0 10*3/uL Normal 1.00-4.8 [facility] Comment on above: Performed By: #### C UBLD, CBC #### [facility] [address] [place] [address] [place] Lymphocytes/100 WBC (Bld) 14.6 % Normal . [facility] Comment on above: Performed By: #### C UBLD, CBC #### [facility] [address] MCH (RBC) [Entitic mass] 31.9 pg Normal 27.5-35.2 [facility] Comment on above: Performed By: #### C UBLD, CBC #### [facility] [address] MCV (RBC) [Entitic vol] 95.0 fL Normal 83.5-101 [facility] Comment on above: Performed By: #### C UBLD, CBC #### [facility] [address] Mean Corpuscular HGB Conc 33.5 g/dL Normal 32.5-35.6 [facility] Comment on above: Performed By: #### C UBLD, CBC #### [facility] [address] [place] [address] [place] Monocytes (Bld) [#/Vol] 0.6 10*3/uL Normal 0.0-0.8 [facility] Comment on above: Performed By: #### C UBLD, CBC #### [facility] [address] [place] [address] [place] Monocytes/100 WBC (Bld) 8.3 % Normal . [facility] Comment on above: Performed By: #### C UBLD, CBC #### [facility] [address] [place] [address] [place] Neutrophils (Bld) [#/Vol] 5.4 10*3/uL Normal 1.8-7.7 [facility] Comment on above: Performed By: #### C UBLD, CBC #### [facility] [address] [place] [address] [place] Neutrophils/100 WBC (Bld) 75.5 % Normal . [facility] Comment on above: Performed By: #### C UBLD, CBC #### [address] Nucleated RBC/100 WBC (Bld) [Ratio] 0.1 % Normal 0-0.5 [facility] Comment on above: Performed By: #### C UBLD, CBC #### [address] Platelet mean volume (Bld) [Entitic vol] 9.4 fL Normal 6.6-10.1 [facility] Comment on above: Performed By: #### C UBLD, CBC #### [address] Platelets (Bld) [#/Vol] 232 10*3/uL Normal 150-450 [facility] Comment on above: Performed By: #### C UBLD, CBC #### [address] RBC (Bld) [#/Vol] 4.98 10*6/uL Normal 3.90-5.60 [facility] Comment on above: Performed By: #### C UBLD, CBC #### [address] WBC (Bld) [#/Vol] 7.1 10*3/uL Normal 4.5-11.0 [facility] Comment on above: Performed By: #### C UBLD, CBC #### [address] Creatinineon 12-19-2020 Creatinine [Mass/Vol] 1.05 mg/dL Normal 0.64-1.27 [facility] Comment on above: Performed By: #### B MP, CREAT, CRP #### [address] Creatinine Clr Calc Pharmacy 58.25 [facility] Comment on above: Performed By: #### B MP, CREAT, CRP #### [address] Estimated GFR ( Aria > 60 Normal [facility] Comment on above: Result Comment: GFR estimated reference range: According to KDOQI guidelines, <60 ml/min/1.73m2 is sufficient to diagnose a patient with chronic kidney disease. Performed By: #### B CONNER HERNANDEZ, CRP #### [facility] [address] Estimated GFR (Non- Am > 60 Normal [facility] Comment on above: Performed By: #### B MPCONNER, CRP #### [facility] [address] [place] [id number] [facility] Ammoniaon 11-18-2020 Ammonia (P) [Moles/Vol] 21 umol/L Normal [facility] Comment on above: Result Comment: PERF ORMED BY: [place] [id number] PATHOLOGIST COUNTERPERSON HARDY WAYNE M.D. Performed By: #### A MM #### [address] Encounters Encounter Date Encounter Type Care Provider Facility Start: 05-13-2022 End: 05-14-[address] SANDEEP SOLIS Facility: Payers Date Payer Category Payer Medicare [id number] 1940 Unknown [id number] Clinical Note 05-13-2022 Note Date & Type [...] by: DALE YOUNG Date: 2022-05-13 13:49 [facility] Summary Purpose Family History No Family History Records FoundNo Family History Records Found Advance Directives No Advanced Directives Records FoundNo Advanced Directives Records Found Additional Source Comments (unrecognized sect ion and content) No Status Records FoundNo Status Records Found INFORMATION SOURCE (unrecogn ized section and content) DATE CREATED AUTHOR 06/11/2021 [facility] DATE CREATED AUTHOR AUTHOR'Claudia ABAD 05/19/2022 [facility]ERTAINING TO PATIENTS [...] BE BASED ON THE PRIMARY CLINICAL RECORDS. [employer] provides no warranty or guarantee of the accuracy or completeness of information in this document.
[2024-04-19] MEDS: ACETAMINOPHEN 325 MG TABLET 650 MG PO (11:25)
[2024-04-19 11:41] VITALS: O2SAT 98
--- NOTE | 2024-04-19 13:38 | ED_ITS ---
HPI HPI - General Adult General Chief complaint: Shortness of Breath/Dyspnea Stated complaint: shortness of breath Time Seen by Provider: 04/19/24 11:15 Source: patient Mode of arrival: ambulance History of Present Illness HPI narrative: Patient brought to us by the EMS for the concern that he was short of breath in the shelter, although by the time the EMS arrived the patient had no complaint and he denies having any complaint Related Data Home Medications ?Medication ?Instructions ?Recorded ?Confirmed clopidogrel 75 mg tablet 75 mg PO DAILY 11/10/23 04/08/24 psyllium husk 0.52 gram capsule 0.52 g PO TID 11/10/23 04/02/24 (Fiber (psyllium husk)) rosuvastatin 5 mg tablet 5 mg PO BEDTIME 11/10/23 04/08/24 spironolactone 25 mg tablet 25 mg PO DAILY 11/10/23 04/08/24 terbinafine HCl 250 mg tablet 250 mg PO DAILY 11/10/23 04/08/24 valsartan 80 mg tablet 80 mg PO DAILY 11/10/23 04/08/24 aspirin 81 mg chewable tablet 81 mg PO DAILY 04/02/24 04/08/24 cholecalciferol (vitamin D3) 50 50 mcg PO DAILY 04/02/24 04/08/24 mcg (2,000 unit) capsule (D3-2000) diclofenac sodium 1 % topical gel topical 04/02/24 clindamycin HCl 300 mg capsule mg 04/08/24 fluconazole 100 mg tablet mg 04/08/24 nystatin 100,000 unit/gram topical topical 04/08/24 cream Allergies Allergy/AdvReac Type Severity Reaction Status Date / Time No Known Drug Allergies Allergy Verified 04/08/24 07:37 Opioid HPI Opioid Management Most Recent Opioid Data: No Data to Display Review of Systems ROS Status of ROS 10 or more systems reviewed and unremark able except as noted in history and below PFSH PFSH Social History Little interest or pleasure in doing things: not at all Feeling down, depressed, or hopeless: not at all Exam Narrative Exam Narrative: Nurses notes and vital signs reviewed and patient is not hypoxic. General: Well-appearing and in no apparent distress. Skin: Warm, dry, no pallor noted. No rash. Head: Normocephalic, atraumatic. Neck: Supple, non-tender. Eye: Pupils are equal, round and EOMI. No scleral icterus. Ears, Nose, Mouth, and Throat: TM are clear, no nasal mucosal hypertrophy. Oral mucosa is moist, no posterior oropharynx erythema, uvula is mid-line Cardiovascular: Regular Rate and Rhythm without murmur, gallop or rub. Respiratory: No accessory muscle use or respiratory distress. Lungs are clear to auscultation, no wheezing, rales or rhonchi Chest Wall: no tenderness Back: No midline thoracic or lumbar vertebral tenderness. No CVA tenderness Musculoskeletal: normal ROM, no calf or popliteal tenderness, no lower extremity edema/swelling GI: Abdomen is soft, non-distended. Normal bowel sounds. No masses appreciated. No tenderness to palpation. No rebound, guarding, or rigidity noted. Neurological: A&O x4. No cranial nerve dysfunction observed. No truncal ataxia. Moves all extremities. Sensation intact. Psychiatric: Cooperative and interactive. Normal mood and affect. Constitutional Vital Signs, click to edit/add: Last Vital Signs Temp 97.7 F 04/19/24 10:39 Pulse 84 04/19/24 10:39 Resp 20 04/19/24 11:41 BP 94/63 04/19/24 10:39 Pulse Ox 98 04/19/24 11:41 O2 Del Method Room Air 04/19/24 11:41 Course Vital Signs Vital signs: Vital Signs Temperature 97.7 F 04/19/24 10:39 Pulse Rate 84 04/19/24 10:39 Respiratory Rate 16 04/19/24 10:39 Blood Pressure 94/63 04/19/24 10:39 Pulse Oximetry 98 04/19/24 10:39 Oxygen Delivery Method Room Air 04/19/24 10:39 Temperature 97.7 F 04/19/24 10:39 Pulse Rate 84 04/19/24 10:39 Respiratory Rate 20 04/19/24 11:41 Blood Pressure 94/63 04/19/24 10:39 Pulse Oximetry 98 04/19/24 11:41 Oxygen Delivery Method Room Air 04/19/24 11:41 Medical Decision Making MDM Narrative Medical decision making narrative: The patient continued to have no complaint while he was in the ER he had no idea why he was in the emergency room Vitals are normal and examination is well the patient was discharged to go back to the shelter Discharge Plan Discharge Chief Complaint: Shortness of Breath/Dyspnea Clinical Impression: COPD (chronic obstructive pulmonary disease) Patient Disposition: Home, Self-Care Time of Disposition Decision: 11:15 Condition: Good Prescriptions / Home Meds: No Action rosuvastatin 5 mg tablet 5 mg PO BEDTIME spironolactone 25 mg tablet 25 mg PO DAILY terbinafine HCl 250 mg tablet 250 mg PO DAILY valsartan 80 mg tablet 80 mg PO DAILY clopidogrel 75 mg tablet 75 mg PO DAILY psyllium husk [Fiber (psyllium husk)] 0.52 gram capsule 0.52 g PO TID diclofenac sodium 1 % gel TOPICAL aspirin 81 mg tablet,chewable 81 mg PO DAILY cholecalciferol (vitamin D3) [D3-2000] 50 mcg (2,000 unit) capsule 50 mcg PO DAILY fluconazole 100 mg tablet clindamycin HCl 300 mg capsule nystatin 100,000 unit/gram cream TOPICAL Print Language: Kyrgyz Instructions: Chronic Bronchitis (DC) Referrals: SANDEEP SOLIS DO [Primary Care Provider] - 1 week Discharge Date/Time: 04/19/24 11:42
== END 2024-04-19 11:42 | disposition home or self-care (01) ==
PROVIDERS: Emergency Provider Emergency Medicine; PCP Internal Medicine
DX: J44.9 Chronic obstructive pulmonary disease, unspecified (principal)
CPT/HCPCS: 99283

== ENCOUNTER 2024-05-31 06:05 | Emergency (ER) | payer MEDICARE, OTHER, SELFPAY ==
[2024-05-31] VITALS (8 sets, daily range): BP systolic 123–138; BP diastolic 64–68; PULSE 105; TEMP 37.1; O2SAT 91–92; BMI 27.4
--- NOTE | 2024-05-31 06:10 | XR_ITS ---
The [address] [address] Patient Name: GLENNA BHANDARI MRN: [id number] date: 1940 Sex: M Assigned Patient Location: ED.MAIN Current Patient Location: Accession/Order Number: [id number] Exam Date: 05/31/2024 06:30 Report Date: 05/31/2024 07:24 At the request of: ZAN MARKER Procedure: XR pelvis 1-2V PROCEDURE: XR pelvis 1-2V HISTORY: fall COMPARISON: None. FINDINGS: BONES:Mild narrowing of the hip joint spaces and small periarticular degenerative osteophytes. 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 Suspect partial osseous bridging/degenerative changes of left sacroiliac joint. SOFT TISSUES:No visible soft tissue swelling. EFFUSION:None visible. OTHER: Negative. XR/XR pelvis 1-2V IMPRESSION: 1. No appreciable acute bone abnormality. Evaluation of the femoral necks bilaterally is limited due to positioning. 2. Degenerative changes of the lumbar spine and sacroiliac joints. Electronically authenticated by: RG MCCULLOUGH Date: 05/31/2024 07:24
--- NOTE | 2024-05-31 06:10 | XR_ITS ---
The [address] [address] Patient Name: GLENNA BHANDARI MRN: [id number] date: 1940 Sex: M Assigned Patient Location: ER Current Patient Location: Accession/Order Number: [id number] Exam Date: 05/31/2024 06:30 Report Date: 05/31/2024 07:21 At the request of: ZAN MARKER Procedure: XR elbow RT min 3V PROCEDURE: XR elbow RT min 3V HISTORY: fall, right elbow injury COMPARISON: None. FINDINGS: BONES:No fracture or dislocation. Small degenerative osteophytes along the articular margins. SOFT TISSUES:Several small faint calcifications anterior to the elbow joint represent vascular atherosclerotic disease. No appreciable soft tissue swelling. EFFUSION:None visible. OTHER: Negative. XR/XR elbow RT min 3V IMPRESSION: 1. No acute bone abnormality. Electronically authenticated by: RG MCCULLOUGH Date: 05/31/2024 07:21
--- NOTE | 2024-05-31 06:10 | XR_ITS ---
The [address] [address] Patient Name: GLENNA BHANDARI MRN: [id number] date: 1940 Sex: M Assigned Patient Location: ER Current Patient Location: ED.MAIN Accession/Order Number: [id number] Exam Date: 05/31/2024 06:30 Report Date: 05/31/2024 07:00 At the request of: ZAN MARKER Procedure: XR chest 1V EXAM: XR chest 1V HISTORY: fall . Patient found down on the floor at 4:00 AM. Low back pain. COMPARISON: Chest x-ray, 04/08/2024. TECHNIQUE: Frontal chest x-ray. FINDINGS: Cardiac size, mediastinal contour and pulmonary vascularity are within normal limits. There is mild blunting of the left costophrenic angle. The lungs are otherwise clear. No acute osseous injury is seen. XR/XR chest 1V IMPRESSION: Mild blunting of the left costophrenic angle could reflect pleural thickening or trace pleural fluid. No other potential acute cardiopulmonary findings are seen. Electronically authenticated by: REMIGIO DEL REAL Date: 05/31/2024 07:00
--- NOTE | 2024-05-31 06:10 | CT_ITS ---
[address] [address] Patient Name: GLENNA BHANDARI MRN: [id number] date: 1940 Sex: M Assigned Patient Location: ED.MAIN Current Patient Location: Accession/Order Number: [id number] Exam Date: 05/31/2024 06:30 Report Date: 05/31/2024 07:11 At the request of: ZAN MARKER Procedure: CT head/brain wo con EXAMINATION: CT Head without Contrast TECHNIQUE: Multiple axial noncontrast images of the brain were obtained and reformatted according to the standard protocol. QPP DOCUMENTATION: At least one of the following dose reduction techniques was utilized: Iterative reconstruction, and/or Automatic Exposure Control, and/or mA/kV adjustment based on body size. INDICATION: fall, hx dementia COMPARISON: None FINDINGS: Intracranial hemorrhage: No CT evidence of intraparenchymal, intraventricular, or extraaxial hemorrhage. Infarct/Vascular: No evidence of acute transcortical infarctions. Patchy hypoattenuation throughout the supratentorial white matter is nonspecific but most commonly associated with chronic small vessel ischemic disease. Intracranial Mass: No evidence of intracranial mass. CSF Spaces: The ventricles, basal cisterns, and sulci are moderately enlarged consistent with generalized cerebral and cerebellar atrophy. No midline shift or mass effect. Calvarium and Scalp: Unremarkable. Mastoid Air Cells: Clear. Paranasal Sinuses: Visualized paranasal sinuses are clear. Orbits: Orbits are unremarkable. CT/CT head/brain wo con IMPRESSION: No CT evidence of acute intracranial abnormalities. Chronic intracranial changes, as described above. Electronically authenticated by: JOHNIE LINARES Date: 05/31/2024 07:11
--- NOTE | 2024-05-31 06:11 | CT_ITS ---
[address] [address] Patient Name: GLENNA BHANDARI MRN: [id number] date: 1940 Sex: M Assigned Patient Location: Current Patient Location: Accession/Order Number: [id number] Exam Date: 05/31/2024 06:30 Report Date: 05/31/2024 07:17 At the request of: ZAN MARKER Procedure: CT cervical spine wo con EXAMINATION: CT Cervical Spine without IV Contrast TECHNIQUE: Standard protocol axial Cervical spine CT was performed without intravenous contrast. Multiplanar reformatted images were created according to the routine protocol. QPP DOCUMENTATION: At least one of the following dose reduction techniques was utilized: Iterative reconstruction, and/or Automatic Exposure Control, and/or mA/kV adjustment based on body size. INDICATION: . fall COMPARISON: None FINDINGS: Segmentation: There are 7 cervical vertebrae. Alignment: Minimal retrolisthesis of C3 and C4. Minimal anterolisthesis of C7 on T1 and T1 on T2. Vertebrae: No evidence of fractures or significant losses of vertebral body heights. Intervertebral Discs: There is multilevel degenerative disc disease which is most notable at C3-C4, C5-C6, and C6-C7. C2-C3: No spinal canal stenosis. Bilateral facet arthropathy. Mild foraminal narrowing. C3-C4: Small posterior disc osteophyte complex. Mild spinal canal narrowing. Bilateral uncovertebral and facet joint arthropathy. Severe foraminal stenosis. C4-C5: Small posterior disc osteophyte complex. No spinal canal stenosis. Uncovertebral and facet joint arthropathy. Moderate foraminal stenosis. C5-C6: Small posterior disc osteophyte complex. Mild spinal canal narrowing. Bilateral uncovertebral and facet joint arthropathy. Moderate to severe right and moderate left foraminal narrowing. C6-C7: Posterior disc osteophyte complex. Mild spinal canal narrowing. Uncovertebral and facet joint arthropathy. Mild foraminal narrowing. C7-T1: Bilateral facet arthropathy. Minimal anterolisthesis C7 on T1. No spinal canal stenosis. Mild foraminal narrowing. Paraspinal Tissues: Unremarkable. Additional Findings: None. CT/CT cervical spine wo con IMPRESSION: 1. No CT evidence of acute abnormalities throughout the cervical spine. 2. Multilevel degenerative changes, as described above. Electronically authenticated by: JOHNIE LINARES Date: 05/31/2024 07:17
--- NOTE | 2024-05-31 06:12 | ED.FALL1 ---
Documented by User: Sheri Root MD 06/08/24 02:16 HPI HPI - Fall General Chief Complaint: Fall Stated Complaint: FALL Time Seen by Provider: 05/31/24 06:10 Source: patient Mode of arrival: ambulance Limitations: other (History of dementia) Limitations comment: Hx dementia History of Present Illness HPI Narrative: This 83-year-old male who is in a dementia unit at a local [facility] is brought to the emergency department by EMS. The patient fell during the night and was found on the ground during their morning rounds. He has a skin tear on his right elbow. He complains of pain all over . He does not complain of any chest pain or shortness of breath. He is moving all extremities. He does have a skin tear in his right elbow. His fall was not witnessed but he told the paramedics that he was getting up to use the bathroom. Related Data Home Medications ?Medication ?Instructions ?Recorded ?Confirmed clopidogrel 75 mg tablet 75 mg PO DAILY 11/10/23 05/31/24 psyllium husk 0.52 gram capsule 0.52 g PO TID 11/10/23 04/02/24 (Fiber (psyllium husk)) rosuvastatin 5 mg tablet 5 mg PO BEDTIME 11/10/23 05/31/24 spironolactone 25 mg tablet 25 mg PO DAILY 11/10/23 05/31/24 terbinafine HCl 250 mg tablet 250 mg PO DAILY 11/10/23 05/31/24 valsartan 80 mg tablet 80 mg PO DAILY 11/10/23 05/31/24 aspirin 81 mg chewable tablet 81 mg PO DAILY 04/02/24 05/31/24 cholecalciferol (vitamin D3) 50 50 mcg PO DAILY 04/02/24 05/31/24 mcg (2,000 unit) capsule (D3-2000) fluconazole 100 mg tablet mg 04/08/24 nystatin 100,000 unit/gram topical topical 04/08/24 cream ezetimibe 10 mg tablet 10 mg PO DAILY 05/31/24 05/31/24 gabapentin 100 mg tablet 100 mg PO TID 05/31/24 05/31/24 naproxen 500 mg tablet mg 05/31/24 Allergies Allergy/AdvReac Type Severity Reaction Status Date / Time No Known Drug Allergies Allergy Verified 05/31/24 06:11 Opioid HPI Opioid Management Most Recent Pain and Opioid Data: No Data to Display Review of Systems ROS Status of ROS 10 or more systems reviewed and unremarkable except as noted in history and below PFSH PFSH Social History Little interest or pleasure in doing things: not at all Feeling down, depressed, or hopeless: not at all Exam Narrative Exam Narrative: Vital signs and Nursing Notes reviewed: Patient is afebrile, he is mildly tachycardic with a pulse of 105, blood pressure is normal at 123/68, he is hypoxic with pulse ox of 91% on RA General: Awake, alert, nontoxic overweight adult male, he is moving about the stretcher and following commands, no respiratory distress, GCS 15 HEENT: Normocephalic atraumatic, mucous membranes are moist and pink, eyes are clear, normal conjunctiva, vision is grossly intact, posterior pharynx is normal in appearance. Neck: Supple, no midline bony vertebral tenderness or step-off Chest: Lungs are clear to auscultation with good air entry, there is no wheezing rhonchi or rales appreciated no accessory muscle use, patient is speaking in complete sentences-no chest wall tenderness to palpation CVS: Regular rate and rhythm S1-S2, no murmurs rubs or gallops, pulses are brisk and equal bilaterally ABD: Obese, soft, nondistended, nontender, no rebound guarding or rigidity, bowel sounds are normal, no pulsatile masses appreciated Extremities: Moving all extremities, stable pelvic rock, patient flexes at each hip and bend at the knee. There is a 1 x 2 cm skin tear overlying the right elbow. There is full range of motion of the right upper extremity however. Glass Silverer strength is intact Skin: Normal in appearance without rash,pallor, petechiae or purpura Neuro: No focal deficits Constitutional Vital Signs, click to edit/add: Last Vital Signs Temp 98.7 F 05/31/24 06:07 Pulse 105 H 05/31/24 06:07 Resp 16 05/31/24 06:07 BP 129/64 05/31/24 07:00 Pulse Ox 91 L 05/31/24 08:30 O2 Del Method Room Air 05/31/24 06:07 Course Vital Signs Vital signs: Vital Signs Temperature 98.7 F 05/31/24 06:07 Pulse Rate 105 H 05/31/24 06:07 Respiratory Rate 16 05/31/24 06:07 Blood Pressure 123/68 05/31/24 06:07 Pulse Oximetry 91 L 05/31/24 06:07 Oxygen Delivery Method Room Air 05/31/24 06:07 Temperature 98.7 F 05/31/24 06:07 Pulse Rate 105 H 05/31/24 06:07 Respiratory Rate 16 05/31/24 06:07 Blood Pressure 129/64 05/31/24 07:00 Pulse Oximetry 91 L 05/31/24 08:30 Oxygen Delivery Method Room Air 05/31/24 06:07 MDM - Fall MDM Narrative Medical decision making narrative: This 83-year-old male who is in a dementia unit is brought to the emergency department by EMS after he was found on the floor this morning. He had an unwitnessed fall. He complains of pain all over upon arrival. There was no sign of any injury besides a skin tear in his right elbow. He was moving all extremities. I did not appreciate any head injury. He had no tenderness to palpation of his neck or back. His abdomen is soft. He is moving his lower extremities. Due to the fact that this was unwitnessed I ordered a CT scan of his head and neck as well as x-ray of the right elbow and a chest x-ray and pelvic x-ray. His right elbow was cleaned and bacitracin dressing was applied over the skin tear. He was medicated with Tylenol. Will be signed out to the incoming physician at 7 AM pending results of his x-rays and CT scans. Imaging Data Chest x-ray: Radiologist's impression: ITS Impressions Chest X-Ray 05/31/24 06:10 IMPRESSION: Mild blunting of the left costophrenic angle could reflect pleural thickening or trace pleural fluid. No other potential acute cardiopulmonary findings are seen. Electronically authenticated by: REMIGIO DEL REAL Date: 05/31/2024 07:00 Elbow X-Ray 05/31/24 06:10 IMPRESSION: 1. No acute bone abnormality. Electronically authenticated by: RG MCCULLOUGH Date: 05/31/2024 07:[address] 05/31/24 06:10 IMPRESSION: No CT evidence of acute intracranial abnormalities. Chronic intracranial changes, as described above. Electronically authenticated by: JOHNIE LINARES Date: 05/31/2024 07:11 Pelvis X-Ray 05/31/24 06:10 IMPRESSION: 1. No appreciable acute bone abnormality. Evaluation of the femoral necks bilaterally is limited due to positioning. 2. Degenerative changes of the lumbar spine and sacroiliac joints. Electronically authenticated by: RG MCCULLOUGH Date: 05/31/2024 07:[address] 05/31/24 06:11 IMPRESSION: 1. No CT evidence of acute abnormalities throughout the cervical spine. 2. Multilevel degenerative changes, as described above. Electronically authenticated by: JOHNIE LINARES Date: 05/31/2024 07:17 Discharge Plan Discharge Chief Complaint: Fall Clinical Impression: Unwitnessed fall, Injury of elbow Patient Disposition: Home, Self-Care Time of Disposition Decision: 07:38 Condition: Good Mode of Transportation: EMS Prescriptions / Home Meds: No Action rosuvastatin 5 mg tablet 5 mg PO BEDTIME spironolactone 25 mg tablet 25 mg PO DAILY terbinafine HCl 250 mg tablet 250 mg PO DAILY valsartan 80 mg tablet 80 mg PO DAILY clopidogrel 75 mg tablet 75 mg PO DAILY psyllium husk [Fiber (psyllium husk)] 0.52 gram capsule 0.52 g PO TID aspirin 81 mg tablet,chewable 81 mg PO DAILY cholecalciferol (vitamin D3) [D3-2000] 50 mcg (2,000 unit) capsule 50 mcg PO DAILY fluconazole 100 mg tablet nystatin 100,000 unit/gram cream TOPICAL ezetimibe 10 mg tablet 10 mg PO DAILY gabapentin 100 mg tablet 100 mg PO TID naproxen 500 mg tablet Print Language: Mauritanian Instructions: Fall Prevention for Older Adults (ED) Referrals: SANDEEP SOLIS DO [Primary Care Provider] - 1 week Discharge Date/Time: 05/31/24 10:20 Documented by User: Bere Cronin DO 05/31/24 10:13 HPI HPI - Fall General Chief Complaint: Fall Stated Complaint: FALL Time Seen by Provider: 05/31/24 06:10 Related Data Home Medications ?Medication ?Instructions ?Recorded ?Confirmed clopidogrel 75 mg tablet 75 mg PO DAILY 11/10/23 05/31/24 psyllium husk 0.52 gram capsule 0.52 g PO TID 11/10/23 04/02/24 (Fiber (psyllium husk)) rosuvastatin 5 mg tablet 5 mg PO BEDTIME 11/10/23 05/31/24 spironolactone 25 mg tablet 25 mg PO DAILY 11/10/23 05/31/24 terbinafine HCl 250 mg tablet 250 mg PO DAILY 11/10/23 05/31/24 valsartan 80 mg tablet 80 mg PO DAILY 11/10/23 05/31/24 aspirin 81 mg chewable tablet 81 mg PO DAILY 04/02/24 05/31/24 cholecalciferol (vitamin D3) 50 50 mcg PO DAILY 04/02/24 05/31/24 mcg (2,000 unit) capsule (D3-2000) fluconazole 100 mg tablet mg 04/08/24 nystatin 100,000 unit/gram topical topical 04/08/24 cream ezetimibe 10 mg tablet 10 mg PO DAILY 05/31/24 05/31/24 gabapentin 100 mg tablet 100 mg PO TID 05/31/24 05/31/24 naproxen 500 mg tablet mg 05/31/24 Allergies Allergy/AdvReac Type Severity Reaction Status Date / Time No Known Drug Allergies Allergy Verified 05/31/24 06:11 Opioid HPI Opioid Management Most Recent Pain and Opioid Data: No Data to Display PFSH PFSH Social History Little interest or pleasure in doing things: not at all Feeling down, depressed, or hopeless: not at all Exam Constitutional Vital Signs, click to edit/add: Last Vital Signs Temp 98.7 F 05/31/24 06:07 Pulse 105 H 05/31/24 06:07 Resp 16 05/31/24 06:07 BP 129/64 05/31/24 07:00 Pulse Ox 91 L 05/31/24 08:30 O2 Del Method Room Air 05/31/24 06:07 Course Vital Signs Vital signs: Vital Signs Temperature 98.7 F 05/31/24 06:07 Pulse Rate 105 H 05/31/24 06:07 Respiratory Rate 16 05/31/24 06:07 Blood Pressure 123/68 05/31/24 06:07 Pulse Oximetry 91 L 05/31/24 06:07 Oxygen Delivery Method Room Air 05/31/24 06:07 Temperature 98.7 F 05/31/24 06:07 Pulse Rate 105 H 05/31/24 06:07 Respiratory Rate 16 05/31/24 06:07 Blood Pressure 129/64 05/31/24 07:00 Pulse Oximetry 91 L 05/31/24 08:30 Oxygen Delivery Method Room Air 05/31/24 06:07 MDM - Fall MDM Narrative Medical decision making narrative: This 83-year-old male who is in a dementia unit is brought to the emergency department by EMS after he was found on the floor this morning. He had an unwitnessed fall. He complains of pain all over upon arrival. There was no sign of any injury besides a skin tear in his right elbow. He was moving all extremities. I did not appreciate any head injury. He had no tenderness to palpation of his neck or back. His abdomen is soft. He is moving his lower extremities. Due to the fact that this was unwitnessed I ordered a CT scan of his head and neck as well as x-ray of the right elbow and a chest x-ray and pelvic x-ray. His right elbow was cleaned and bacitracin dressing was applied over the skin tear. He was medicated with Tylenol. Will be signed out to the incoming physician at 7 AM pending results of his x-rays and CT scans. Patient signed out to me from Dr. Root. CT scans and x-rays were all negative for any acute fracture or bleed. Patient will be sent back to his care facility. Differential Diagnosis Differential diagnosis: Likely compression fracture, concussion with loss of consciousness and concussion without loss of consciousness Imaging Data Chest x-ray: Radiologist's impression: ITS Impressions Chest X-Ray 05/31/24 06:10 IMPRESSION: Mild blunting of the left costophrenic angle could reflect pleural thickening or trace pleural fluid. No other potential acute cardiopulmonary findings are seen. Electronically authenticated by: REMIGIO DEL REAL Date: 05/31/2024 07:00 Elbow X-Ray 05/31/24 06:10 IMPRESSION: 1. No acute bone abnormality. Electronically authenticated by: RG MCCULLOUGH Date: 05/31/2024 07:[address] 05/31/24 06:10 IMPRESSION: No CT evidence of acute intracranial abnormalities. Chronic intracranial changes, as described above. Electronically authenticated by: JOHNIE LINARES Date: 05/31/2024 07:11 Pelvis X-Ray 05/31/24 06:10 IMPRESSION: 1. No appreciable acute bone abnormality. Evaluation of the femoral necks bilaterally is limited due to positioning. 2. Degenerative changes of the lumbar spine and sacroiliac joints. Electronically authenticated by: RG MCCULLOUGH Date: 05/31/2024 07:[address] 05/31/24 06:11
--- OUTSIDE RECORDS SUMMARY | 2024-05-31 06:27 | XMS_ITS | CCD ---
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 Role Phone IRMA, DR HOPKINS Consulting Unavailable IRMA, DR HOPKINS Attending Unavailable [facility], DR GIRON Primary Care Unavailable IRMA, DR [...] by: DALE YOUNG Date: 2022-05-13 15:16 Normal [facility] XR TIB_FIB TINY 2Von 05-13-19 23 XR [...] by: DALE YOUNG Date: 2022-05-13 13:51 Normal [facility] MR hand RT wo conon 12-28-19 MR hand RT wo con [facility] [place] [address] [place] [address] MRI Report Signed Patient: Glenna Jara MR#: [id number] : 1940 Acct:[id number] Age/Sex: 80 / M ADM Date: 12/27/20 Loc: [facility] Room: Type: [facility] Attending Dr: Isaac Pham DO Ordering Provider: [...] Tristin Calderon M.D.12/27/2020 5:07 PM Dictation Location: [place] [address] Transcribed By: EVARISTO 12/27/201706 Dictated By: Tristin Calderon II, MD 12/27/20 802 Signed By: 12/27/20 170 Normal [facility] Complete Blood Count Auto Di ffon 12-22-2020 Basophils (Bld) [#/Vol] 0.0 10*3/uL Normal 0.0-0.2 [facility] Comment on above: Result Comment: PERF ORMED BY: [place] [address] PATHOLOGIST [employer] SALES ENGINEER HARDY WAYNE M.D. Performed By: #### B MP, CREAT, CRP #### [facility] [address] [place] [address] [place] Basophils/100 WBC (Bld) 0.5 % Normal . [facility] Comment on above: Performed By: #### B MP, CREAT, CRP #### [facility] [address] [place] [address] [place] Eosinophils (Bld) [#/Vol] 0.2 10*3/uL Normal 0.0-0.45 [facility] Comment on above: Performed By: #### B MP, CREAT, CRP #### [facility] [address] [place] [address] [place] Eosinophils/100 WBC (Bld) 5.2 % Normal . [facility] Comment on above: Performed By: #### B MP, CREAT, CRP #### [address] Erythrocyte distribution width (RBC) [Ratio] 13.8 % Normal 12.0-14.8 [facility] Comment on above: Performed By: #### B MP, CREAT, CRP #### [address] Hematocrit (Bld) [Volume fraction] 41.1 % Normal 38.8-50.0 [facility] Comment on above: Performed By: #### B MP, CREAT, CRP #### [address] Hemoglobin (Bld) [Mass/Vol] 14.0 g/dL Normal 13.0-17.0 [facility] Comment on above: Performed By: #### B MP, CREAT, CRP #### [address] Lymphocytes (Bld) [#/Vol] 1.2 10*3/uL Normal 1.00-4.8 [facility] Comment on above: Performed By: #### B MP, CREAT, CRP #### [address] Lymphocytes/100 WBC (Bld) 30.8 % Normal . [facility] Comment on above: Performed By: #### B MP, CREAT, CRP #### [address] MCH (RBC) [Entitic mass] 32.1 pg Normal 27.5-35.2 [facility] Comment on above: Performed By: #### B MP, CREAT, CRP #### [address] MCV (RBC) [Entitic vol] 94.0 fL Normal 83.5-101 [facility] Comment on above: Performed By: #### B MP, CREAT, CRP #### [address] Mean Corpuscular HGB Conc 34.1 g/dL Normal 32.5-35.6 [facility] Comment on above: Performed By: #### B MP, CREAT, CRP #### [address] Monocytes (Bld) [#/Vol] 0.6 10*3/uL Normal 0.0-0.8 [facility] Comment on above: Performed By: #### B MP, CREAT, CRP #### [address] Monocytes/100 WBC (Bld) 15.3 % Normal . [facility] Comment on above: Performed By: #### B MP, CREAT, CRP #### [address] Neutrophils (Bld) [#/Vol] 1.8 10*3/uL Normal 1.8-7.7 [facility] Comment on above: Performed By: #### B MP, CREAT, CRP #### [address] Neutrophils/100 WBC (Bld) 48.2 % Normal . [facility] Comment on above: Performed By: #### B MP, CREAT, CRP #### [address] Nucleated RBC/100 WBC (Bld) [Ratio] 0.2 % Normal 0-0.5 [facility] Comment on above: Performed By: #### B MP, CREAT, CRP #### [address] Platelet mean volume (Bld) [Entitic vol] 8.5 fL Normal 6.6-10.1 [facility] Comment on above: Performed By: #### B MP, CREAT, CRP #### [address] Platelets (Bld) [#/Vol] 205 10*3/uL Normal 150-450 [facility] Comment on above: Performed By: #### B MP, CREAT, CRP #### [address] [place] [address] [place] RBC (Bld) [#/Vol] 4.37 10*6/uL Normal 3.90-5.60 [facility] Comment on above: Performed By: #### B MP CREAT, CRP #### [address] WBC (Bld) [#/Vol] 3.8 10*3/uL Low 4.5-11.[address] [facility] Comment on above: Performed By: #### B MP CREAT, CRP #### [address] Vancomycin,Peakon 12-22-2020 Vancomycin,Peak 27.6 ug/mL Normal 20.0-40.0 [facility] Comment on above: Order Comment: Comme nt ?DRAW 1 HOUR AFTER INFUSION COMPLETES Date of last dose?: 20201222 Time of last dose?: 0300 Result Comment: Last dose: - PERFORMED BY: [place] [address] PATHOLOGIST [employer] SALES ENGINEER HARDY WAYNE M.D. Performed By: #### B MP CREAT, CRP #### [address] Basic Metabolic Panelon 11-25 Calcium [Mass/Vol] 8.6 mg/dL Normal 8.2-10.[address] [facility] Comment on above: Performed By: #### B MP CREAT, CRP #### [address] Chloride [Moles/Vol] 102 mmol/L Normal 95-114 [facility] Comment on above: Performed By: #### B MP CREAT, CRP #### [address] CO2 [Moles/Vol] 22.6 mmol/L Normal 22.0-30.0 [facility] Comment on above: Performed By: #### B MP, CREAT, CRP #### [address] Creatinine [Mass/Vol] 0.96 mg/dL Normal 0.64-1.27 [facility] Comment on above: Performed By: #### B CONNER HERNANDEZ CRP #### [facility] [address] Creatinine Clr Calc Pharmacy 63.71 [facility] Comment on above: Performed By: #### B CONNER HERNANDEZ CRP #### [facility] [address] Estimated GFR ( Aria > 60 Normal [facility] Comment on above: Result Comment: GFR estimated reference range: According to KDOQI guidelines, <60 ml/min/1.73m2 is sufficient to diagnose a patient with chronic kidney disease. Performed By: #### B CONNER HERNANDEZ CRP #### [address] Estimated GFR (Non- Am > 60 Normal [facility] Comment on above: Performed By: #### B CONNER HERNANDEZ CRP #### [address] Glucose [Mass/Vol] 95 mg/dL Normal 70-[address] [facility] Comment on above: Result Comment: [place] om Glucose Reference Range is dependent on time and content of last meal. Glucose of more than 200 mg/dL in a nonstressed, ambulatory subject supports the diagnosis of Diabetes Mellitus. ADA recommended reference range Performed By: #### B OCNNER HERNANDEZ CRP #### [place] [address] [place] Potassium [Moles/Vol] 4.5 mmol/L Normal 3.5-5.1 [facility] Comment on above: Performed By: #### B CONNER HERNANDEZ CRP #### [place] [address] [place] Sodium [Moles/Vol] 133 mmol/L Low 136-[address] [facility] Comment on above: Performed By: #### B CONNER HERNANDEZ CRP #### [place] [address] [place] Urea nitrogen [Mass/Vol] 15 mg/dL Normal 9-23 [facility] Comment on above: Performed By: #### B MP, CREAT, CRP #### [facility] [address] hand RT wo conon 12-22-19 CT hand RT wo con [facility] [place] [address] [place] [address] CT Scan Report Signed Patient: Glenna Jara MR#: [id number] : 1940 Acct:[id number] Age/Sex: 80 / M ADM Date: 12/19/20 Loc: Room: 0V7670-0 Type: ADM INOo Attending Dr: Chinyere Diego [...] Albert Jr., M.D.12/21/2020 1:10 PM Dictation Location: [place] [address] Transcribed By: [facility] 12/21/20 1310 Dictated By: Cornelius Albert Jr, MD 12/21/20 1254 Signed By: 12/21/20 1310 Normal [facility] Uric Acidon 12-21-2020 Urate [Mass/Vol] 6.7 mg/dL Normal 2.6-7.2 [facility] Comment on above: Result Comment: PERF ORMED BY: [place] [address] PATHOLOGIST [employer] SALES ENGINEER HARDY WAYNE M.D. Performed By: #### B MP, CREAT, CRP #### [facility] [address] [place] [address] Basic Metabolic Panelon 11-25 Calcium [Mass/Vol] 8.6 mg/dL Normal 8.2-10.[address] [facility] Comment on above: Performed By: #### C BC, BMP #### [facility] [address] Chloride [Moles/Vol] 101 mmol/L Normal 95-114 [facility] Comment on above: Performed By: #### C BC, BMP #### [facility] [address] [place] [address] CO2 [Moles/Vol] 20.4 mmol/L Low 22.0-30.0 [facility] Comment on above: Performed By: #### C BC, BMP #### [facility] [address] [place] [id number] [facility] Creatinine [Mass/Vol] 0.95 mg/dL Normal 0.64-1.27 [facility] Comment on above: Performed By: #### C BC, BMP #### [facility] [address] [place] [id number] [place] Creatinine Clr Calc Pharmacy 64.38 Normal [facility] Comment on above: Result Comment: PERF ORMED BY: [place] [address] PATHOLOGIST [employer] SALES ENGINEER HARDY WAYNE M.D. Performed By: #### C BC, BMP #### [address] Estimated GFR ( Aria > 60 Normal [facility] Comment on above: Result Comment: GFR estimated reference range: According to KDOQI guidelines, <60 ml/min/1.73m2 is sufficient to diagnose a patient with chronic kidney disease. Performed By: #### C BC, BMP #### [address] Estimated GFR (Non- Am > 60 Normal [facility] Comment on above: Performed By: #### C BC, BMP #### [address] Glucose [Mass/Vol] 96 mg/dL Normal 70-[address] [facility] Comment on above: Result Comment: [place] om Glucose Reference Range is dependent on time and content of last meal. Glucose of more than 200 mg/dL in a nonstressed, ambulatory subject supports the diagnosis of Diabetes Mellitus. ADA recommended reference range Performed By: #### C BC, BMP #### [address] Potassium [Moles/Vol] 4.1 mmol/L Normal 3.5-5.1 [facility] Comment on above: Performed By: #### C BC, BMP #### [address] Sodium [Moles/Vol] 133 mmol/L Low 136-[address] [facility] Comment on above: Performed By: #### C BC, BMP #### [address] Urea nitrogen [Mass/Vol] 12 mg/dL Normal 9-23 [facility] Comment on above: Performed By: #### C BC, BMP #### [address] Complete Blood Count Auto Di ffon 12-20-2020 Basophils (Bld) [#/Vol] 0.0 10*3/uL Normal 0.0-0.2 [facility] Comment on above: Result Comment: PERF ORMED BY: [place] [address] PATHOLOGIST [employer] SALES ENGINEER HARDY WAYNE M.D. Performed By: #### C BC, BMP #### [address] Basophils/100 WBC (Bld) 0.5 % Normal . [facility] Comment on above: Performed By: #### C BC, BMP #### [facility] [address] Eosinophils (Bld) [#/Vol] 0.1 10*3/uL Normal 0.0-0.45 [facility] Comment on above: Performed By: #### C BC, BMP #### [address] Eosinophils/100 WBC (Bld) 2.5 % Normal . [facility] Comment on above: Performed By: #### C BC, BMP #### [address] Erythrocyte distribution width (RBC) [Ratio] 13.7 % Normal 12.0-14.8 [facility] Comment on above: Performed By: #### C VINAY, BMP #### [address] Hematocrit (Bld) [Volume fraction] 41.9 % Normal 38.8-50.0 [facility] Comment on above: Performed By: #### C BC, BMP #### [address] Hemoglobin (Bld) [Mass/Vol] 14.3 g/dL Normal 13.0-17.0 [facility] Comment on above: Performed By: #### C BC, BMP #### [address] Lymphocytes (Bld) [#/Vol] 0.9 10*3/uL Low 1.00-4.8 [facility] Comment on above: Performed By: #### C BC, BMP #### [place] [address] Lymphocytes/100 WBC (Bld) 18.2 % Normal . [facility] Comment on above: Performed By: #### C BC, BMP #### [address] MCH (RBC) [Entitic mass] 31.9 pg Normal 27.5-35.2 [facility] Comment on above: Performed By: #### C BC, BMP #### [address] MCV (RBC) [Entitic vol] 93.5 fL Normal 83.5-101 [facility] Comment on above: Performed By: #### C VINAY, BMP #### [address] Mean Corpuscular HGB Conc 34.1 g/dL Normal 32.5-35.6 [facility] Comment on above: Performed By: #### C BC, BMP #### [address] Monocytes (Bld) [#/Vol] 0.5 10*3/uL Normal 0.0-0.8 [facility] Comment on above: Performed By: #### C BC, BMP #### [address] Monocytes/100 WBC (Bld) 10.3 % Normal . [facility] Comment on above: Performed By: #### C BC, BMP #### [address] Neutrophils (Bld) [#/Vol] 3.6 10*3/uL Normal 1.8-7.7 [facility] Comment on above: Performed By: #### C BC, BMP #### [address] Neutrophils/100 WBC (Bld) 68.5 % Normal . [facility] Comment on above: Performed By: #### C BC, BMP #### [address] Nucleated RBC/100 WBC (Bld) [Ratio] 0.1 % Normal 0-0.5 [facility] Comment on above: Performed By: #### C VINAY, BMP #### [address] Platelet mean volume (Bld) [Entitic vol] 8.8 fL Normal 6.6-10.1 [facility] Comment on above: Performed By: #### C VINAY, BMP #### [address] Platelets (Bld) [#/Vol] 204 10*3/uL Normal 150-450 [facility] Comment on above: Performed By: #### C VINAY, BMP #### [address] RBC (Bld) [#/Vol] 4.48 10*6/uL Normal 3.90-5.60 [facility] Comment on above: Performed By: #### C VINAY, BMP #### [address] WBC (Bld) [#/Vol] 5.2 10*3/uL Normal 4.5-11.[address] [facility] Comment on above: Performed By: #### C VINAY, BMP #### [address] Basic Metabolic Panelon 11-25 Calcium [Mass/Vol] 9.2 mg/dL Normal 8.2-10.[address] [facility] Comment on above: Performed By: #### B MP, CREAT, CRP #### [address] Chloride [Moles/Vol] 101 mmol/L Normal 95-114 [facility] Comment on above: Performed By: #### B MP, CREAT, CRP #### [address] CO2 [Moles/Vol] 21.7 mmol/L Low 22.0-30.0 [facility] Comment on above: Performed By: #### B MP, CREAT, CRP #### [facility] [address] Glucose [Mass/Vol] 104 mg/dL High 70-[address] [facility] Comment on above: Result Comment: [facility] Glucose Reference Range is dependent on time and content of last meal. Glucose of more than 200 mg/dL in a nonstressed, ambulatory subject supports the diagnosis of Diabetes Mellitus. ADA recommended reference range Performed By: #### B MP CREAT, CRP #### [facility] [address] Potassium [Moles/Vol] 4.5 mmol/L Normal 3.5-5.1 [facility] Comment on above: Performed By: #### B MARY CREAT, CRP #### [address] Sodium [Moles/Vol] 135 mmol/L Low 136-[address] [facility] Comment on above: Performed By: #### B MARY CREAT, CRP #### [address] Urea nitrogen [Mass/Vol] 12 mg/dL Normal 9-23 [facility] Comment on above: Performed By: #### B CONNER HERNANDEZ, CRP #### [address] Blood Cultureon 12-19-2020 Bacteria identified Cx Nom (Bld) NO GROWTH 5 DAYS PERFORMED BY: [place] [address] PATHOLOGIST [employer] SALES ENGINEER HARDY WAYNE M.D. [facility] Comment on above: Performed By: #### C UBLD, CBC #### [place] [address] [place] Bacteria identified Cx Nom (Bld) NO GROWTH 5 DAYS PERFORMED BY: [place] [address] PATHOLOGIST [employer] SALES ENGINEER HARDY WAYNE M.D. [facility] Comment on above: Performed By: #### C UBLD, CBC #### [address] C-Reactive Proteinon 021 C-Reactive Protein 10.5 mg/dL High 0.0-1.[address] [facility] Comment on above: Result Comment: PERF ORMED BY: [address] [place] [address] PATHOLOGIST [employer] SALES ENGINEER HARDY WAYNE M.D. Performed By: #### B MP, CREAT, CRP #### [address] COVID-19 FRon 12-19-2020 SARS-CoV-2 (COVID-19) RNA TIFFANIE+probe Ql (Unsp spec) Negative Normal Negative [facility] Comment on above: Order Comment: Healt hcare Worker?: N Result Comment: Testing for SARS-CoV-2 by RT-PCR This test was developed and its performance characteristics determined by [employer] and validated at the [facility]. This test has not been FDA [...] is terminated or revoked sooner. PERFORMED BY: [address] [place] [address] PATHOLOGIST [employer] SALES ENGINEER HARDY WAYNE M.D. Performed By: #### C OVID 19 [facility] #### [place] [id number] [facility] Complete Blood Count Auto Di ffon 12-19-2020 Basophils (Bld) [#/Vol] 0.0 10*3/uL Normal 0.0-0.2 [facility] Comment on above: Result Comment: PERF ORMED BY: [place] [address] PATHOLOGIST [employer] SALES ENGINEER HARDY WAYNE M.D. Performed By: #### C UBLD, CBC #### [place] [address] [place] Basophils/100 WBC (Bld) 0.3 % Normal . [facility] Comment on above: Performed By: #### C UBLD, CBC #### [place] [address] [place] Eosinophils (Bld) [#/Vol] 0.1 10*3/uL Normal 0.0-0.45 [facility] Comment on above: Performed By: #### C UBLD, CBC #### [address] Eosinophils/100 WBC (Bld) 1.3 % Normal . [facility] Comment on above: Performed By: #### C UBLD, CBC #### [address] Erythrocyte distribution width (RBC) [Ratio] 13.6 % Normal 12.0-14.8 [facility] Comment on above: Performed By: #### C UBLD, CBC #### [address] Hematocrit (Bld) [Volume fraction] 47.3 % Normal 38.8-50.0 [facility] Comment on above: Performed By: #### C UBLD, CBC #### [place] [address] [place] Hemoglobin (Bld) [Mass/Vol] 15.9 g/dL Normal 13.0-17.0 [facility] Comment on above: Performed By: #### C UBLD, CBC #### [address] Lymphocytes (Bld) [#/Vol] 1.0 10*3/uL Normal 1.00-4.8 [facility] Comment on above: Performed By: #### C UBLD, CBC #### [facility] [address] [place] [address] [place] Lymphocytes/100 WBC (Bld) 14.6 % Normal . [facility] Comment on above: Performed By: #### C UBLD, CBC #### [facility] [address] MCH (RBC) [Entitic mass] 31.9 pg Normal 27.5-35.2 [facility] Comment on above: Performed By: #### C UBLD, CBC #### [facility] [address] MCV (RBC) [Entitic vol] 95.0 fL Normal 83.5-101 [facility] Comment on above: Performed By: #### C UBLD, CBC #### [facility] [address] Mean Corpuscular HGB Conc 33.5 g/dL Normal 32.5-35.6 [facility] Comment on above: Performed By: #### C UBLD, CBC #### [facility] [address] [place] [address] [place] Monocytes (Bld) [#/Vol] 0.6 10*3/uL Normal 0.0-0.8 [facility] Comment on above: Performed By: #### C UBLD, CBC #### [facility] [address] [place] [address] [place] Monocytes/100 WBC (Bld) 8.3 % Normal . [facility] Comment on above: Performed By: #### C UBLD, CBC #### [facility] [address] [place] [address] [place] Neutrophils (Bld) [#/Vol] 5.4 10*3/uL Normal 1.8-7.7 [facility] Comment on above: Performed By: #### C UBLD, CBC #### [facility] [address] [place] [address] [place] Neutrophils/100 WBC (Bld) 75.5 % Normal . [facility] Comment on above: Performed By: #### C UBLD, CBC #### [address] Nucleated RBC/100 WBC (Bld) [Ratio] 0.1 % Normal 0-0.5 [facility] Comment on above: Performed By: #### C UBLD, CBC #### [address] Platelet mean volume (Bld) [Entitic vol] 9.4 fL Normal 6.6-10.1 [facility] Comment on above: Performed By: #### C UBLD, CBC #### [address] Platelets (Bld) [#/Vol] 232 10*3/uL Normal 150-450 [facility] Comment on above: Performed By: #### C UBLD, CBC #### [address] RBC (Bld) [#/Vol] 4.98 10*6/uL Normal 3.90-5.60 [facility] Comment on above: Performed By: #### C UBLD, CBC #### [address] WBC (Bld) [#/Vol] 7.1 10*3/uL Normal 4.5-11.[address] [facility] Comment on above: Performed By: #### C UBLD, CBC #### [address] Creatinineon 12-19-2020 Creatinine [Mass/Vol] 1.05 mg/dL Normal 0.64-1.27 [facility] Comment on above: Performed By: #### B MP, CREAT, CRP #### [address] Creatinine Clr Calc Pharmacy 58.25 [facility] Comment on above: Performed By: #### B MP, CREAT, CRP #### [address] Estimated GFR ( Aria > 60 Normal [facility] Comment on above: Result Comment: GFR estimated reference range: According to KDOQI guidelines, <60 ml/min/1.73m2 is sufficient to diagnose a patient with chronic kidney disease. Performed By: #### B CONNER HERNANDEZ, CRP #### [facility] [address] Estimated GFR (Non- Am > 60 Normal [facility] Comment on above: Performed By: #### B MPCONNER, CRP #### [facility] [address] [place] [id number] [facility] Ammoniaon 11-18-2020 Ammonia (P) [Moles/Vol] 21 umol/L Normal [facility] Comment on above: Result Comment: PERF ORMED BY: [place] [address] PATHOLOGIST [employer] SALES ENGINEER HARDY WAYNE M.D. Performed By: #### A MM #### [address] Encounters Encounter Date Encounter Type Care Provider Facility Start: 05-13-2022 End: 05-14-[address] SANDEEP SOLIS Facility: Payers Date Payer Category Payer Medicare [id number] 1940 Unknown [id number] Clinical Note 05-13-2022 Note Date & Type [...] by: DALE YOUNG Date: 2022-05-13 13:49 [facility] Summary Purpose Family History No Family History Records FoundNo Family History Records Found Advance Directives No Advanced Directives Records FoundNo Advanced Directives Records Found Additional Source Comments (unrecognized sect ion and content) No Status Records FoundNo Status Records Found INFORMATION SOURCE (unrecogn ized section and content) DATE CREATED AUTHOR 06/11/2021 [facility] DATE CREATED AUTHOR AUTHOR'Claudia ABAD [facility]/19/2022 [facility] PERTAINING TO PATIENTS WHO ARE [...] BE BASED ON THE PRIMARY CLINICAL RECORDS. [employer] provides no warranty or guarantee of the accuracy or completeness of information in this document.
--- NOTE | 2024-05-31 06:33 | PC.NURSE ---
I did called the [facility] cecil Madrigal [phone] and I spoke with MARNIE Chiu. [employer] has called this patient's family, per [employer] this patient was found on the bathroom floor, awake and complains of pain all over his body.
[2024-05-31] MEDS: ACETAMINOPHEN 325 MG TABLET 650 MG PO (07:38)
[2024-05-31] MEDS: BACITRACIN 0.9 GM PACKET 1 PACKET TOPICAL (07:38)
== END 2024-05-31 10:20 | disposition home or self-care (01) ==
PROVIDERS: Emergency Provider Emergency Medicine; PCP Internal Medicine
DX: S51.011A Laceration without foreign body of right elbow, initial encounter (principal); F03.90 Unspecified dementia, unspecified severity, without behavioral disturbance, psychotic disturbance, mood disturbance, and anxiety; W19.XXXA Unspecified fall, initial encounter
CPT/HCPCS: 70450; 71045; 72125; 72170; 73080; 99284